=== PATIENT | female | born 1985 | race Caucasian/White ===

== ENCOUNTER 2018-01-23 02:15 | Outpatient (CLI) | payer MEDICAID, SELFPAY | END 2018-01-23 02:35 | PROVIDERS: PCP Nurse Practitioner Family; Visit Provider Nurse Practitioner Family | DX: R07.89 Other chest pain (principal) ==

== ENCOUNTER 2018-05-10 00:09 | Outpatient (CLI) | payer OTHER, SELFPAY ==
--- NOTE | 2018-05-10 13:00 | ETT_ITS ---
*[facility]* *[facility]* [address] [place] [address] Stress Electrocardiography Bret protocol Date of study: 05/10/2018 *PATIENT PRESENTATION* Height: 172.7cm (68in) Blood Pressure: Weight: 135kg (297lb) BSA: 2.62m^2 Referring physician: Nery Lomas Ordering physician: Nery Lomas Impressions: - Normal study after maximal exercise. - No arrhythmias. Summary: 1. Stress: The target heart rate was achieved. Indication: R07.89. History: REASON FOR VISIT: INTERMITTENT CHEST ACHES ASSOCIATED WITH HEART RACING AND A HOT SUFFOCATING FEELING. THESE EPISODES WILL LAST UP TO 30 MINUTES AT TIMES. LAST EPISODE WAS APPROXIMATELY 1 MONTH AGO. 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 PMH: Asthma. Risk factors: Obesity. HDL: 35mg/dl. LDL: 89mg/dl. ALLERGIES: NO KNOWN ALLERGIES. MEDICATONS: LEVOTHYROXINE 25 MCG DAILY. LORATADINE 10 MG DAILY. IBUPROFEN 600 MG Q 6 HOURS PRN. ADVAIR 2 PUFFS BID. FLONASE 1-2 SPRAYS DAILY. ALBUTEROL SULFATE 2 PUFFS Q 4 HRS PRN. Protocol: Bret protocol. Baseline ECG: SINUS RHYTHM. HR 74 BPM. Stress protocol: + +---+ + !Stage !HR !BP (mmHg) ! + +---+ + !Baseline supine !74 !102/62 (75) ! + +---+ + !Baseline standing !78 !112/70 (84) ! + +---+ + !Stage I; 1.7mph, 10degrees; 3 min !133!122/84 (97) ! + +---+ + !Stage II; 2.5mph, 12degrees; 3 min!156!162/88 (113)! + +---+ + !Peak stress !171! ! + +---+ + !Immediate post stress !---!162/72 (102)! + +---+ + !Recovery; 3 min !104!136/68 (91) ! + +---+ + !Recovery; 6 min !97 !106/60 (75) ! + +---+ + * Stress results: Maximal heart rate during stress was 171bpm (91% of maximal predicted heart rate). The maximal predicted heart rate was 187bpm. The target heart rate was achieved. The rate-pressure product for the peak heart rate and blood pressure was 79859cp Hg/min. Stress ECG: TREADMILL PORTION OF STRESS TEST ENDED IN 7 MINUTES & 37 SECONDS DUE TO SHORTNESS OF BREATH AND FATIGUE. NORMAL HEART RATE AND BLOOD PRESSURE RESPONSE TO EXERCISE MAX HR = 171 % OF TARGET = 91 NO ECTOPY APPROXIMATE METS ACHIEVED = 9.54 HEART RACING REPORTED AT IMMEDIATE RECOVERY TIME. SUBSIDED WITHIN 2 MINUTES OF REST. NO ANGINA. NO SIGNIFICANT ST SEGMENT CHANGES AVERAGE FUNCTIONAL CAPACITY FOR EXERCISE. Study data: Kwabena Valdez MD supervised and was readily available during the procedure. This study was interpreted by [facility]. Study status: Routine. Consent: The risks, benefits, and alternatives to the procedure were explained to the patient and informed consent was obtained. Procedure: Initial setup. A baseline ECG was recorded. Surface ECG leads and manual cuff blood pressure measurements were monitored. Heart sounds: Normal. Lung sounds: Normal. Treadmill exercise testing was performed using the Rbet protocol. Study completion: The patient tolerated the procedure well and was discharged from the lab. Discharge: The patient left the laboratory in stable condition. Birthdate: Patient birthdate: 1985. Sex: Gender: female. Study date: Study date: 05/10/2018. Study time: 01:00 PM. Signature Documentation: The Stress ECG portion of this study was interpreted by Kwabena Valdez MD. Electronically signed by Kwabena Valdez 05/10/2018 14:27
== END 2018-05-10 00:29 ==
PROVIDERS: PCP Nurse Practitioner Family; Visit Provider Nurse Practitioner Family
DX: R07.89 Other chest pain (principal); J45.909 Unspecified asthma, uncomplicated; E66.9 Obesity, unspecified
CPT/HCPCS: 93017

== ENCOUNTER 2018-10-14 11:12 | Outpatient (CLI) | payer OTHER, SELFPAY ==
[2018-10-14 12:14] LABS: HCT 39.9 % (36.0-46.0); HGB 13.8 g/dL (12.0-15.5); Mean Corp. HGB Concentration 34.6 g/dL (32.0-36.0); Mean Corpuscular Hemoglobin 30.4 pg (27.0-33.0); Mean Corpuscular Volume 87.9 fL (80-95); Mean Platelet Volume 11.5 fL (8.0-11.0); Platelet Count 182 x1000/uL (130-400); RBC 4.54 m/cumm (4.00-5.20); RBC Distribution Width 13.1 % (11.7-14.6); White Blood Cell Count 8.58 k/cumm (4.4-10.8)
[2018-10-14 12:53] LABS: Anion Gap 12.8 mmol/L (3-11); BUN 14 mg/dL (7-18); CO2 24.2 mmol/L (21.0-32.0); CREATININE 0.76 mg/dL (0.55-1.02); Calcium 9.1 mg/dL (8.5-10.1); Chloride 104 mmol/L (98-107); Glucose 78 mg/dL (70-100); Potassium 4.3 mmol/L (3.5-5.1); Sodium 141 mmol/L (136-145)
[2018-10-14 13:30] LABS: TSH (W/Ref FT4) 3.87 uIU/mL (0.358-3.74)
[2018-10-14 13:47] LABS: FREE T4 0.95 ng/dL (0.76-1.46)
== END 2018-10-14 11:32 ==
PROVIDERS: PCP Nurse Practitioner Family; Visit Provider Nurse Practitioner Family
DX: E03.9 Hypothyroidism, unspecified (principal); R00.2 Palpitations; R53.83 Other fatigue
CPT/HCPCS: 36415; 80048; 85027; 84439; 84443

== ENCOUNTER 2018-11-28 17:24 | Outpatient (REF) | payer OTHER, SELFPAY ==
--- NOTE | 2018-11-28 16:45 | PAPFT_PTH ---
PATIENT: Isabela Pool LOC: [facility] U#:[id number] AGE/SX: 33/F ROOM: RE11/28/[address]: Jersey Watson : 1985 BED: DIS: 11/28/2018 SPEC #: [id number] RECD: 11/28/18 17:58 STATUS: FADUMO REQ #: [id number] SILVIANO: 11/28/18 16:[address]: Jersey Watson DEPT: [facility] Cytology RECD BY: Cherie Holden ENTERED: 11/28/18 17:59 SP TYPE: PAPFT OTHR DR: Nery Lomas Tissues: 1 - CX/ENDOCX FOR PAP SMEARS Procedures: PAP THIN PREP/UVM Screening HPV DNA PROBE Comments: [id number]
== END 2018-11-28 17:44 ==
LOC: NCHCN 17:24
PROVIDERS: PCP Nurse Practitioner Family; Visit Provider Nurse Practitioner Family
DX: Z00.00 Encounter for general adult medical examination without abnormal findings (principal); Z12.4 Encounter for screening for malignant neoplasm of cervix; Z11.51 Encounter for screening for human papillomavirus (HPV)
CPT/HCPCS: 88142; 87624

== ENCOUNTER 2019-06-16 09:59 | Outpatient (REF) | payer OTHER, SELFPAY ==
[2019-06-16 14:32] LABS: TSH (W/Ref FT4) 4.52 uIU/mL (0.36-3.74)
[2019-06-16 14:52] LABS: FREE T4 0.89 ng/dL (0.76-1.46)
== END 2019-06-16 10:19 ==
LOC: NCHCN 09:59
PROVIDERS: PCP Nurse Practitioner Family; Visit Provider Nurse Practitioner Family
DX: E03.9 Hypothyroidism, unspecified (principal)
CPT/HCPCS: 84439; 84443

== ENCOUNTER 2019-08-22 19:48 | Emergency (ER) | payer OTHER, SELFPAY ==
[2019-08-22 19:52] VITALS: BP 120/99; PULSE 94; RESP 18; TEMP 36.7; O2SAT 99
--- NOTE | 2019-08-22 20:22 | W.ED.GENAD ---
Discharge Plan Disposition Patient Disposition: HOME Condition: Stable Discharge Details Chief Complaint: Orthopedic Clinical Impression: Strain of left calf muscle Primary Care Provider: Jersey Watson ED Provider: Verna Awad Home Meds and New Rx's Prescriptions: Continued loratadine 10 MG tablet 10 mg PO DAILY Qty: 30 RF: 1 fluticasone propionate [Flonase Allergy Relief] 9.9 ML spray,suspension 1 - 2 spry NS DAILY Qty: 1 RF: 3 albuterol sulfate [ProAir HFA] 8.5 GM HFA aerosol inhaler 2 puff Inhalation Q4H PRN Qty: 1 RF: 5 Advair HFA 8 GM HFA aerosol inhaler 2 puff Inhalation BID Qty: 3 RF: 3 levothyroxine 50 mcg tablet 50 mcg PO DAILY RF: 0 sertraline 50 mg tablet 50 mg PO DAILY RF: 0 Discharge Instructions Instructions: Muscle Strain (ED) Additional Instructions: Follow up with primary care provider in 3-5 days. Return to ED sooner if any worsening or concerns. Increase oral fluids. Please take Tylenol or Ibuprofen with food every 4-6 hours as needed for pain and swelling. Use Guille bandage or other elastic wrap as needed. Return if any worsening swelling, redness or concerns. Referrals: Jersey Watson, STATION INSTALLER [Primary Care Provider] - Discharge Data Discharge Date/Time-TO BE ENTERED AT DEPARTURE: 08/22/19 21:20 Medical Decision Making <Verna Awad - Last Filed: 08/22/19 21:17> 34-year-old female presents with left posterior lateral calf tenderness for the last 1 to 2 weeks. Patient states that pain is become more constant. She denies any known injuries, no fever no chills. 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 She is concerned for a DVT due to her father having history of DVT which is a risk factor. She is not on any control no smoking. She does have a history of asthma, hypothyroidism and seasonal allergies. On initial exam there is no significant obvious swelling or erythema noted there is mild warmth. Negative Homans sign no posterior popliteal tenderness. Ultrasound not available at this time. Will rule out DVT with d-dimer blood draw. Differential diagnosis includes DVT, tendinopathy, superficial thrombophlebitis, cellulitis, musculoskeletal strain. D-dimer within normal limits, discussed home care with patient and strict return instructions to return if any worsening, swelling or any concerns. <Pernell Chamorro DO - Last Filed: 08/23/19 23:10> Physician note: Patient was seen and assessed by myself in conjunction with Verna. Please refer to her history, physical, assessment and plan. 34-year-old female presents for greater than 3 to 5 days of left lower calf pain. Pain is mild and achy, worse with movement. No history of blood clots personally, no estrogen use, lung surgeries procedures or trips. Symptoms began gradually, and were not associated with vigorous exercise or trauma. Symptoms improved by rest, worsened with movement. Family history is positive for blood clots in her father, but no other family members. Physical exam demonstrates no erythema, edema, swelling, pitting edema, or change or abnormality in neurovascular exam. She does have very minimal subjective left calf tenderness on palpation. Resistance against eversion of the ankle worsens the left calf pain, no significant pain with plantar dorsiflexion or inversion of the ankle. Signs and symptoms appear clinically consistent with soleus strain. However with the patient's history differential does include superficial phlebitis, and notably less likely DVT. No ultrasound is currently available. Out of an abundance of precaution a d-dimer will be ordered for rule out as the patient is low risk, and is PERC negative and low risk on the Wells score. D-dimer negative. Symptoms inconsistent with blood clot at this time clinically. Symptoms are clinically consistent with muscle strain. Patient will be discharged home. Please refer to Verna's documentation for plan. HPI <Verna Awad - Last Filed: 08/22/19 21:17> General Mode of arrival: ambulatory. Date/Time Provider Initiated Documentation: 08/22/19 19:49. Limitations to Documentation: no limitations. Information obtained by: patient. HPI Narrative: 34-year-old female presents with left posterior lateral calf tenderness for the last 1 to 2 weeks. Patient states that pain is become more constant. She denies any known injuries, no fever no chills. 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 She is concerned for a DVT due to her father having history of DVT which is a risk factor. She is not on any control no smoking. She does have a history of asthma, hypothyroidism and seasonal allergies. On initial exam there is no significant obvious swelling or erythema noted there is mild warmth. Negative Homans sign no posterior popliteal tenderness. Related Data Home Medications Medication Instructions Recorded Confirmed fluticasone propionate [Flonase 1 - 2 spry NS DAILY #1 bottle 10/30/14 08/22/19 Allergy Relief] loratadine 10 mg PO DAILY #30 tab 10/30/14 08/22/19 Advair HFA 2 puff INHALATION BID #3 inhaler 11/29/16 08/22/19 albuterol sulfate [ProAir HFA] 2 puff INHALATION Q4H PRN #1 11/29/16 08/22/19 inhaler levothyroxine 50 mcg PO DAILY 08/22/19 08/22/19 sertraline 50 mg PO DAILY 08/22/19 08/22/19 Allergies Allergy/AdvReac Type Severity Reaction Status Date / Time No Known Allergies Allergy Unverified 08/22/19 20:03 General Stated Complaint: Vascular LEODAN: 3 Review of Systems <Verna Awad - Last Filed: 08/22/19 21:17> Narrative: Constitutional: Negative for weight loss, alert and oriented, well groomed, obese body habitus, appears comfortable. HEENT: Denies trauma, headaches, blurry vision, nasal discharge, sore throat, trouble swallowing. Chest: Denies chest pain, palpitations, irregular rhythm, hypertension. Respiratory: Denies Shortness of breath, cough, hemoptysis. GI: Denies abdominal pain, nausea, vomiting, diarrhea, constipation. : Denies dysuria, hematuria, flank pain, rectal bleeding. Musculoskeletal: Describes left calf pain x2 weeks. Father is a history of DVTs. Neuro: Denies dizziness, blurry vision, weakness, syncope, headache or facial numbness. Hematologic: Denies easy bruising, intolerance to heat or cold, hair loss. [facility] <Verna Awad - Last Filed: 08/22/19 21:17> Medical History Allergic rhinitis Asthma Surgical History section x2 Cholecystectomy (07/04/14) at [facility] Social History Smoking/Tobacco Use Status: Never Drug use: Never Do you feel safe at home: Yes Do you feel safe in your relationship?: Yes Exam <Verna Awad - Last Filed: 08/22/19 21:17> Narrative Exam Narrative: Constitutional: Alert and oriented x3. Appears stated age. Obese l body habitus. Head: Normocephalic, no trauma. Eyes: Pupils PERRLA, Red reflex noted, EOM's intact. Eyelids symmetrical without lesions, discharge, or swelling. ENT: Bilateral TM's WNL, External ear normal to inspection, no mastoid TTP, swelling, or erythema, Nasal turbinates WNL, no nasal discharge. Normal dentition, Posterior pharynx WNL, no exudate. Chest: RRR, Normal S1, S2, distal pulses intact. Resp: Lungs clear to auscultation bilaterally, no wheezes, rales, or rhonchi. Musculoskeletal: Normal gait, 5/5 strength to all four extremities. Negative Homans sign, no significant swelling to the left calf. There is slight warmth noted to the posterior calf. No popliteal tenderness. Skin: No suspicious rashes or lesions. Capillary refill less than 2 sec. Neurologic: Cranial nerves II-XII intact. Alert and oriented x 3. DTR's intact. Hematologic/Lymphatic: No ecchymosis, no lymphadenopathy. Course <Verna Awad - Last Filed: 08/22/19 21:17> Vital Signs Vital signs: Vital Signs Temperature 36.7 C 08/22/19 19:52 Pulse 94 H 08/22/19 19:52 Respiratory Rate 18 08/22/19 19:52 Blood Pressure 120/99 H 08/22/19 19:52 Pulse Oximetry 99 08/22/19 19:52 Temperature 36.7 C 08/22/19 19:52 Temperature Source Skin 08/22/19 19:52 Pulse 94 H 08/22/19 19:52 Respiratory Rate 18 08/22/19 19:52 Respiratory Effort 08/22/19 19:57 Blood Pressure 120/99 H 08/22/19 19:52 Blood Pressure Position Sitting 08/22/19 19:52 Pulse Oximetry 99 08/22/19 19:52 Oxygen Delivery Method Room Air 08/22/19 19:52 Oxygen Flow Rate 0 08/22/19 19:52 Pain Level 4 08/22/19 20:01
[2019-08-22 21:07] LABS: D-Dimer 409 ng/mlFEU (<500)
[2019-08-22 21:13] VITALS: BP 120/99; PULSE 94; RESP 18; TEMP 36.7; O2SAT 99
== END 2019-08-22 21:20 | disposition home or self-care (01) ==
PROVIDERS: Emergency Provider Registered Nurse Emergency; PCP Nurse Practitioner Family
DX: S86.812A Strain of other muscle(s) and tendon(s) at lower leg level, left leg, initial encounter (principal); X58.XXXA Exposure to other specified factors, initial encounter
CPT/HCPCS: 36415; 99282; 85379

== ENCOUNTER 2019-09-11 13:33 | Outpatient (REF) | payer OTHER, SELFPAY ==
[2019-09-11 15:23] LABS: HCT 41.2 % (36.0-46.0); Mean Corpuscular Hemoglobin 29.8 pg (27.0-33.0); Mean Corpuscular Volume 87.7 fL (80-95); Mean Platelet Volume 11.5 fL (8.0-11.0); Platelet Count 218 x1000/uL (130-400); RBC Distribution Width 13.3 % (11.7-14.6); White Blood Cell Count 6.71 k/cumm (4.4-10.8)
[2019-09-11 16:20] LABS: ALT 32 U/L (14-59); AST 20 U/L (15-37); Albumin 3.8 g/dL (3.4-5.0); Alkaline Phosphatase 84 U/L (46-116); Anion Gap 6.6 mmol/L (3-11); BUN 12 mg/dL (7-18); Bilirubin, Total 0.4 mg/dL (0.2-1.0); CO2 26.4 mmol/L (21.0-32.0); CREATININE 0.92 mg/dL (0.55-1.02); Calcium 8.6 mg/dL (8.5-10.1); Calculated LDL 88 mg/dL (<100); Chloride 105 mmol/L (98-107); Cholesterol 154 mg/dL (<200); Glucose 102 mg/dL (74-106); HDL Cholesterol 37 mg/dL (40-60); Potassium 3.7 mmol/L (3.5-5.1); Sodium 138 mmol/L (136-145); TSH (W/Ref FT4) 3.28 uIU/mL (0.36-3.74); Total Protein 7.1 g/dL (6.4-8.2); Triglyceride 148 mg/dL (<150)
== END 2019-09-11 13:53 ==
LOC: NCHCN 13:33
PROVIDERS: PCP Nurse Practitioner Family; Visit Provider Nurse Practitioner Family
DX: Z68.43 Body mass index [BMI] 50.0-59.9, adult (principal)
CPT/HCPCS: 80053; 80061; 85027; 84443

== ENCOUNTER 2019-10-31 09:17 | Outpatient (CLI) | payer OTHER, SELFPAY ==
[2019-11-06 22:36] LABS: SARS-CoV-2 RNA Undetected (Undetected); SARS-CoV-2 Specimen Source Nasopharynx
== END 2019-10-31 09:37 ==
PROVIDERS: PCP Nurse Practitioner Family; Visit Provider Nurse Practitioner Family
DX: Z11.59 Encounter for screening for other viral diseases (principal)
CPT/HCPCS: U0003

== ENCOUNTER 2019-12-10 11:45 | Emergency (ER) | payer SELFPAY ==
[2019-12-10 11:45] VITALS: BP 133/72; PULSE 92; RESP 18; TEMP 37.2; O2SAT 96
--- NOTE | 2019-12-10 11:45 | DI.CT_ITS ---
EXAM: CT HEAD CERVICAL SPINE WO COMPARISON: No exams were available for comparison FINDINGS: CT examination of the cervical spine was performed without contrast administration. There is no evide nce of acute cervical spine fracture or dislocation. Tracheolaryngeal structures appear intact. No ce rvical mass or adenopathy. Intervertebral disc spaces are well maintained. Noncontrast cranial CT was performed. Ventricular system is normal in appearance. No evidence of acut e intracranial hemorrhage, mass effect, or midline shift. No calvarial fracture. The orbital and temp oral bone structures appear intact. IMPRESSION: No evidence of acute cervical spine injury. No evidence of acute intracranial injury. RADIATION DOSE DELIVERED: 1,596.4mGy.cm Total DLP 1,596.4mGy.cm Total DLP DATA REPOSITORY: All CT scans at this facility are submitted to the National Radiology Data Registry (NRDR) Dose Index Registry (DIR) with the [employer] (ACR). RADIATION OPTIMIZATION: All CT scans at this facility use at least one of these dose optimization te chniques: automated exposure control; mA and/or kV adjustment per patient size (includes targeted exa ms where dose is matched to clinical indication); or iterative reconstruction.
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
[2019-12-10 11:57] VITALS: BP 133/72; PULSE 96; O2SAT 97
[2019-12-10] MEDS: Ketorolac 15 MG/ML VIAL IVP (12:18)
[2019-12-10] MEDS: Normal Saline 1,000 ML 150 ML IV (12:18)
[2019-12-10 12:53] LABS: Abs Immature Grans 0.03 10^3/uL (0.0-0.06); Absolute Basophil Count 0.03 10^3/uL (0.0-0.2); Absolute Eosinophil Count 0.07 10^3/uL (0.0-0.7); Absolute Lymphocyte Count 1.98 10^3/uL (1.2-3.4); Absolute Monocyte Count 0.57 10^3/uL (0.1-0.8); Absolute Neutrophil Count 6.81 10^3/uL (1.2-6.7); Basophils % 0.3; Eosinophils % 0.7; HCT 41.8 % (36.0-46.0); HGB 14.3 g/dL (11.2-15.7); Immature Grans % 0.3; Lymphocytes % 20.9; MCH 29.5 pg (27.0-33.0); MCHC 34.2 % (32.0-36.0); MCV 86.4 fL (80-95); MPV 11.5 fL (8.0-11.0); Neutrophils % 71.8; Nucleated RBC 0 %; Platelet Count 204 10^3/uL (130-400); RBC 4.84 10^6/uL (3.93-5.22); RDW 12.6 % (11.7-14.6); RDW-SD 39.6 fL; WBC 9.49 10^3/uL (4.4-10.8)
[2019-12-10] MEDS: Omnipaque 350 MG/ML 100 ML BTL IJ (12:59)
[2019-12-10 13:04] LABS: ALT 26 U/L (14-59); AST 19 U/L (15-37); Albumin 3.9 g/dL (3.4-5.0); Alkaline Phosphatase 63 U/L (46-116); Anion Gap 12.3 mmol/L (3-11); BUN 14 mg/dL (7-18); Bilirubin, Total 0.4 mg/dL (0.2-1.0); CO2 24.7 mmol/L (21.0-32.0); CREATININE 0.93 mg/dL (0.55-1.02); Calcium 9.2 mg/dL (8.5-10.1); Chloride 103 mmol/L (98-107); Glucose 94 mg/dL (74-106); Potassium 3.8 mmol/L (3.5-5.1); Sodium 140 mmol/L (136-145); Total Protein 7.5 g/dL (6.4-8.2)
--- NOTE | 2019-12-10 13:15 | DI.CT_ITS ---
EXAM: CT CHEST/ABD/PEL W TECHNIQUE: CT examination of the chest, abdomen, and pelvis was performed with bolus infusion of 100 cc of Omnipaque 350. COMPARISON: CT CHEST FOR PULMONARY EMBOLUS from 05/23/2017 FINDINGS: There is no evidence of a thoracic vascular injury. The lungs are clear. No pneumothorax or pleural effusion. No mediastinal hematoma. No adenopathy in the chest. Tracheobronchial tree appears intact. The liver, spleen, and pancreas appear normal. Gallbladder has been surgically removed. Bile ducts are normal. Adrenals and kidneys are unremarkable. No evidence of urinary tract injury or obstruction. No abdominal or pelvic vascular injury seen. No abdominal or pelvic adenopathy. No significant abdomi nal wall hematoma seen. Small ventral fat containing hernia noted.. No evidence of bowel injury. [employer] structures appear intact. IMPRESSION: No evidence of acute injury of the chest, abdomen, or pelvis. RADIATION DOSE DELIVERED: 2,395.8mGy.cm Total DLP 2,395.8mGy.cm Total DLP DATA REPOSITORY: All CT scans at this facility are submitted to the National Radiology Data Registry (NRDR) Dose Index Registry (DIR) with the [employer] (ACR). RADIATION OPTIMIZATION: All CT scans at this facility use at least one of these dose optimization te chniques: automated exposure control; mA and/or kV adjustment per patient size (includes targeted exa ms where dose is matched to clinical indication); or iterative reconstruction.
[2019-12-10 13:43] VITALS: O2SAT 97
[2019-12-10 13:44] VITALS: BP 129/78; PULSE 81; O2SAT 96
== END 2019-12-10 14:28 | disposition home or self-care (01) ==
LOC: ER 14:27
PROVIDERS: Emergency Provider Emergency Medicine; PCP Nurse Practitioner Family
DX: S40.012A Contusion of left shoulder, initial encounter (principal); S50.312A Abrasion of left elbow, initial encounter; V28.4XXA Motorcycle driver injured in noncollision transport accident in traffic accident, initial encounter
CPT/HCPCS: 36415; 74177; 80053; 96374; 99285; 70450; 71260; 72125; 73030; 85025; J1885; J3490; L3650

== ENCOUNTER 2020-05-16 13:20 | Emergency (ER) | payer OTHER, SELFPAY ==
[2020-05-16 13:23] VITALS: BP 174/106; PULSE 107; RESP 20; TEMP 36.6; O2SAT 98
--- NOTE | 2020-05-16 13:47 | W.ED.GENAD ---
Discharge Plan Disposition Patient Disposition: HOME Condition: Stable Discharge Details Clinical Impression: Head injury, Laceration of face Primary Care Provider: Jersey Watson ED Provider: Verna Awad Home Meds and New Rx's Prescriptions: No Action albuterol sulfate [ProAir HFA] 8.5 GM HFA aerosol inhaler 2 puff Inhalation Q4H PRN Qty: 1 RF: 5 Advair HFA 8 GM HFA aerosol inhaler 2 puff Inhalation BID Qty: 3 RF: 3 levothyroxine 50 mcg tablet 50 mcg PO DAILY RF: 0 loratadine [Claritin] 10 mg Tablet 10 mg PO DAILY RF: 0 Discharge Instructions Instructions: Head Injury (ED), Facial Laceration (ED) Additional Instructions: Have sutures removed in 5 to 7 days, keep wound clean and dry, leave alone for 12 to 24 hours you may wash under running soap and water tomorrow. Return for any signs of infection including increased redness, swelling red streaks or drainage. Return for any worsening signs of head injury including worsening headache not relieved by Tylenol or ibuprofen, vomiting or confusion. Follow up with primary care provider in 3-5 days. Return to ED sooner if any worsening or concerns. Increase oral fluids. Please take Tylenol or Ibuprofen with food every 4-6 hours as needed for pain and swelling. Referrals: Jersey Watson, [employer]GER [Primary Care Provider] - Medical Decision Making 34-year-old female presents to the ED chief complaint of head injury and laceration. This occurred while sledding approximately 45 minutes prior to arrival. Patient went downhill sliding unknown of speed fell into a ravine hitting her head in a ditch. She denies any loss of consciousness, denies any neck pain no vomiting. She denies any blurry vision or dizziness. She does have approximately 1.5 cm laceration noted to her left eyebrow. Also noted is an abrasion noted to her left cheek associate with some swelling. EOMs are intact. She did not take any medications prior to arrival. She has a past medical history of hypothyroidism, asthma. She is somewhat anxious. At this time will do head CT without contrast, to rule out underlying bone fracture or intracranial pathology. Patient appears very anxious and is concerned for concussion, I do however have a low suspicion for any internal injury. We will give tetanus shot, Tylenol and plan to repair the laceration. COMPARISON: CT HEAD CERVICAL SPINE WO 12/10/2019 1:01 PM FINDINGS: Brain: Normal. No hemorrhage. Unremarkable white matter. No mass effect. Cerebral ventricles: No ventriculomegaly. Bones/joints: Unremarkable. No acute fracture. Paranasal sinuses: Visualized sinuses are unremarkable. No fluid levels. Mastoid air cells: Visualized mastoid air cells are well aerated. Soft tissues: Unremarkable. IMPRESSION: No acute intracranial abnormality. Lacerations repaired as noted in procedure note above. Wound was cleaned with chlorhexidine scrub, infiltrated with 1% lidocaine with epi, patient tolerated well. 3 simple interrupted sutures with 5-0 Ethilon placed to the laceration near her eyebrow, one simple interrupted suture placed to the stellate laceration to the corner of her eyelid. Wound was well approximated. Home care was discussed and suture removal, patient verbalized understanding. Discussed strict return instructions. HPI General Mode of arrival: ambulatory. Date/Time Provider Initiated Documentation: 05/16/20 13:29. Limitations to Documentation: no limitations. Information obtained by: patient. HPI Narrative: 34-year-old female presents to the ED chief complaint of head injury and laceration. This occurred while sledding approximately 45 minutes prior to arrival. Patient went downhill sliding unknown of speed fell into a ravine hitting her head in a ditch. She denies any loss of consciousness, denies any neck pain no vomiting. She denies any blurry vision or dizziness. She does have approximately 1.5 cm laceration noted to her left eyebrow. Also noted is an abrasion noted to her left cheek associate with some swelling. EOMs are intact. She did not take any medications prior to arrival. She has a past medical history of hypothyroidism, asthma. She is somewhat anxious. Related Data Home Medications Medication Instructions Recorded Confirmed Advair HFA 2 puff INHALATION BID #3 inhaler 11/29/16 05/16/20 albuterol sulfate [ProAir HFA] 2 puff INHALATION Q4H PRN #1 11/29/16 05/16/20 inhaler levothyroxine 50 mcg PO DAILY 08/22/19 05/16/20 loratadine [Claritin] 10 mg PO DAILY 12/10/19 05/16/20 Allergies Allergy/AdvReac Type Severity Reaction Status Date / Time No Known Allergies Allergy Unverified 05/16/20 13:28 General Stated Complaint: Laceration LEODAN: 3 Review of Systems All systems reviewed & are unremarkable except as noted in HPI and below Constitutional Constitutional: Reports as per HPI Eyes Eyes: Reports as per HPI Integumentary/Breasts Skin/Breast: Reports wounds (Laceration noted to the left eyebrow) [facility] Medical History (Updated 05/16/20 @ 15:45 by Verna Awad) Allergic rhinitis Asthma Surgical History section x2 Cholecystectomy (07/04/14) at [facility] Social History Smoking/Tobacco Use Status: Never Smoking risk assessment performed?: Yes Alcohol Intake: current Alcohol Intake frequency: holidays/special occasions only Drug use: Never Substance use type: does not use Do you feel safe at home: Yes Do you feel safe in your relationship?: Yes Exam Narrative Exam Narrative: Constitutional: Alert and oriented x3. Appears stated age. Normal body habitus. Head: Normocephalic, does have approximately 1.5 to 2 cm laceration noted to the left eyebrow, has a superficial abrasion noted to left cheek associated with some swelling. Underlying bone structure is intact with palpation. Eyes: Pupils PERRLA, Red reflex noted, EOM's intact. Eyelids symmetrical , laceration noted left upper eyebrow area, some swelling noted. ENT: Bilateral TM's WNL, External ear normal to inspection, no mastoid TTP, swelling, or erythema, no hemotympanum, nasal turbinates WNL, no septal hematoma, no nasal discharge. Normal dentition, Posterior pharynx WNL, no exudate. Chest: RRR, Normal S1, S2, distal pulses intact. Resp: Lungs clear to auscultation bilaterally, no wheezes, rales, or rhonchi. Musculoskeletal: Normal gait, 5/5 strength to all four extremities. Does complain of mild left shoulder tenderness able to raise shoulder to approximately 75 degrees. Does have a history of rotator cuff repair, no obvious deformity or tenderness with palpation. Skin: Capillary refill less than 2 sec. Neurologic: Cranial nerves II-XII intact. Alert and oriented x 3. DTR's intact. Hematologic/Lymphatic: No ecchymosis, no lymphadenopathy. HENMT Head: laceration and periorbital ecchymosis (Mild left eye) Head images: 1. Approximately 1.5 cm linear laceration 2. Small stellate laceration noted Course Vital Signs Vital signs: Vital Signs Temperature 36.6 C 05/16/20 13:23 Pulse 107 H 05/16/20 13:23 Respiratory Rate 20 05/16/20 13:23 Blood Pressure 174/106 H 05/16/20 13:23 Pulse Oximetry 98 05/16/20 13:23 Temperature 36.6 C 05/16/20 13:23 Temperature Source Skin 05/16/20 13:23 Pulse 107 H 05/16/20 13:23 Respiratory Rate 20 05/16/20 13:23 Blood Pressure 174/106 H 05/16/20 13:23 Blood Pressure Position Sitting 05/16/20 13:23 Pulse Oximetry 98 05/16/20 13:23 Oxygen Delivery Method Room Air 05/16/20 13:23 Oxygen Flow Rate 0 05/16/20 13:23 Pain Level 5 05/16/20 13:23 Procedures Laceration Laceration 1: Site: face Side (If applicable): left Size (cm): 1.5 Description: linear Depth: simple, single layer Local Anesthetic: Lidocaine 1% and with Epi Amount of anesthesia used (mL): 1 Pre-repair: wound explored, irrigated extensively and deep structures intact Skin layer closed with: nylon Size (cm): 5-0 Number of sutures: 3 Technique: simple, interrupted Laceration 2: Site: face Side (If applicable): left Size (cm): 0.5 Description: stellate Depth: simple, single layer Local Anesthetic: Lidocaine 1% and with Epi Amount of anesthesia used (mL): 0.5 Pre-repair: irrigated extensively Skin layer closed with: nylon Size (cm): 5-0 Number of sutures: 1 Technique: simple, interrupted
[2020-05-16] MEDS: Acetaminophen 500 MG TAB PO (14:17)
[2020-05-16] MEDS: Lidocaine/Epinephri/Tetracaine Topical Gel 3 ML TP (14:17)
[2020-05-16 14:22] VITALS: BP 116/94; PULSE 90; RESP 18; TEMP 36.7; O2SAT 97
--- NOTE | 2020-05-16 14:55 | DI.CT_ITS ---
EXAM: CT HEAD WO CLINICAL HISTORY: Head Injury, eye lid laceration. TECHNIQUE: Imaging Protocol: Axial computed tomography images with coronal and sagittal reformatted images were created and reviewed COMPARISON: No exams were available for comparison FINDINGS: Ventricles and Extra axial spaces: Normal in size and morphology for the patient's age. Hemorrhage: None. Cerebral parenchyma: Normal. Midline shift: None. Brainstem/Cerebellum: Normal. Calvarium: Normal. Visualized Paranasal sinuses/Mastoids: Clear. Soft Tissues: Unremarkable. IMPRESSION: No acute intracranial process. RADIATION DOSE DELIVERED: 824.54mGy.cm Total DLP DATA REPOSITORY: All CT scans at this facility are submitted to the National Radiology Data Registry (NRDR) Dose Index Registry (DIR) with the [employer] (ACR). RADIATION OPTIMIZATION: All CT scans at this facility use at least one of these dose optimization te chniques: automated exposure control; mA and/or kV adjustment per patient size (includes targeted exa ms where dose is matched to clinical indication); or iterative reconstruction.
--- NOTE | 2020-05-16 15:05 | DI.VRAD_ITS ---
PROCEDURE INFORMATION: Exam: CT Head Without Contrast Exam date and time: 05/16/2020 1:47 PM Age: 34 years old Clinical indication: Injury or trauma; Fall; Concussion/head injury; Injury details: Fell skiing. No loc TECHNIQUE: Imaging protocol: Computed tomography of the head without contrast. Radiation optimization: All CT scans at this facility use at least one of these dose optimization techniques: automated exposure control; mA and/or kV adjustment per patient size (includes targeted exams where dose is matched to clinical indication); or iterative reconstruction. COMPARISON: CT HEAD CERVICAL SPINE WO 12/10/2019 1:01 PM FINDINGS: Brain: Normal. No hemorrhage. Unremarkable white matter. No mass effect. Cerebral ventricles: No ventriculomegaly. Bones/joints: Unremarkable. No acute fracture. Paranasal sinuses: Visualized sinuses are unremarkable. No fluid levels. Mastoid air cells: Visualized mastoid air cells are well aerated. Soft tissues: Unremarkable. IMPRESSION: No acute intracranial abnormality. Dictated and Authenticated by: Rachel Chapman MD. Ordering:NEGIN Gillespie MD
== END 2020-05-16 15:50 | disposition home or self-care (01) ==
PROVIDERS: Emergency Provider Registered Nurse Emergency; PCP Nurse Practitioner Family
DX: S01.112A Laceration without foreign body of left eyelid and periocular area, initial encounter (principal); V00.221A Fall from sled, initial encounter; Y93.23 Activity, snow (alpine) (downhill) skiing, snowboarding, sledding, tobogganing and snow tubing; S00.81XA Abrasion of other part of head, initial encounter
CPT/HCPCS: 12011; 81025; 90471; 99284; 70450

== ENCOUNTER 2020-07-05 15:20 | Outpatient (REF) | payer OTHER, SELFPAY | END 2020-07-05 15:21 | disposition home or self-care (01) | LOC: NCHCN 15:20 | PROVIDERS: PCP Nurse Practitioner Family; Visit Provider Acupuncturist | DX: J02.9 Acute pharyngitis, unspecified (principal) | CPT/HCPCS: 87070 ==

== ENCOUNTER 2020-09-17 04:04 | Outpatient (CLI) | payer OTHER, SELFPAY ==
--- NOTE | 2020-09-17 09:35 | DI.MRI_ITS ---
Exam(s) MR UPPER JOINT LT WO EXAM: MR UPPER JOINT LT WO CLINICAL HISTORY: LT SHOULDER PAIN, M25.512. TECHNIQUE: Multiplanar multisequence MRI was performed. COMPARISON: CR XR SHOULDER LT COMPLETE 2+V from 12/10/2019 FINDINGS: BONES: There is no fracture or contusion pattern. JOINTS: Mild degenerative changes are seen at the acromioclavicular joint. The glenohumeral joint is normal. The articular cartilage is well maintained. There also degenerative changes seen in the gr eater tuberosity. TENDONS: Supraspinatus: There is tendinosis of the supraspinatus tendon. No evidence of a full-thickness tear . Infraspinatus: Unremarkable. Subscapularis: There is tendinosis of the subscapularis tendon. Teres Minor: Unremarkable. Biceps and Manito: Unremarkable. MUSCLES: Unremarkable. GLENOID LABRUM: Unremarkable on this noncontrast examination. SOFT TISSUES: Unremarkable. LIGAMENTS: Unremarkable. OTHER: Subacromial and subdeltoid bursae are unremarkable. IMPRESSION: 1. Tendinosis of the subscapularis and supraspinatus tendons. 2. No evidence of a rotator cuff tear. 3. Degenerative changes of the acromioclavicular joint. DATA REPOSITORY:
== END 2020-09-17 04:24 ==
PROVIDERS: PCP Nurse Practitioner Family; Visit Provider Nurse Practitioner Family
DX: M25.512 Pain in left shoulder (principal); M75.82 Other shoulder lesions, left shoulder; M19.012 Primary osteoarthritis, left shoulder
CPT/HCPCS: 73221

== ENCOUNTER 2021-02-03 11:36 | Outpatient (REF) | payer OTHER, SELFPAY | END 2021-02-03 11:37 | disposition home or self-care (01) | LOC: LBN 11:36 | PROVIDERS: PCP Nurse Practitioner Family; Visit Provider Physician Assistant Medical | DX: J02.9 Acute pharyngitis, unspecified (principal) | CPT/HCPCS: 87070 ==

== ENCOUNTER 2021-02-07 13:06 | Outpatient (CLI) | payer OTHER, SELFPAY ==
[2021-02-07 13:04] LABS: Mono Screening Negative (Negative)
== END 2021-02-07 13:07 | disposition home or self-care (01) ==
LOC: LBO 13:06
PROVIDERS: PCP Nurse Practitioner Family; Visit Provider Physician Assistant Medical
DX: J02.9 Acute pharyngitis, unspecified (principal)
CPT/HCPCS: 36415; 86308

== ENCOUNTER 2021-02-23 10:46 | Outpatient (REF) | payer OTHER, SELFPAY ==
--- NOTE | 2021-02-23 08:15 | TONSIL_PTH ---
PATIENT: Isabela Pool LOC: [facility] U#:[id number] AGE/SX: 35/F ROOM: RE02/23/[address]: Mauricio Arita MD : 1985 BED: DIS: 02/23/2021 SPEC #: [id number] RECD: 02/23/21 12:58 STATUS: FADUMO REJolanta #: [id number] SILVIANO: 02/23/21 08:[address]: Mauricio Arita DEPT: Surgical Specimen RECD BY: Cherie Holden ENTERED: 02/23/21 12:58 SP TYPE: TONSIL OTHR DR: Jersey Watson Tissues: 1 - TONSIL BIOPSY Procedures: GROSS AND MICRO LEVEL 4 IMMUNOPEROXIDASE STAIN Single Probe In Situ Hybridization Comments: [id number] (FLOW CYTOMETRY, ORDERED IN LAB - [id number])
[2021-03-04 09:36] LABS: Leukemia/Lymphoma by FC (Blood See Comments
== END 2021-02-23 10:47 | disposition home or self-care (01) ==
LOC: LBN 10:46
PROVIDERS: PCP Nurse Practitioner Family; Visit Provider Otolaryngology
DX: J35.1 Hypertrophy of tonsils (principal); J03.90 Acute tonsillitis, unspecified; J35.8 Other chronic diseases of tonsils and adenoids
CPT/HCPCS: 88185; 88305; 88368; 88184; 88189; 88361

== ENCOUNTER 2021-03-02 13:22 | Outpatient (REF) | payer OTHER, SELFPAY ==
[2021-03-02 14:57] LABS: TSH 2.66 uIU/mL (0.36-3.74)
== END 2021-03-02 13:23 | disposition home or self-care (01) ==
LOC: NCHCN 13:22
PROVIDERS: PCP Nurse Practitioner Family; Visit Provider Physician Assistant
DX: E03.9 Hypothyroidism, unspecified (principal)
CPT/HCPCS: 84443

== ENCOUNTER 2021-03-04 11:37 | Outpatient (CLI) | payer OTHER, SELFPAY ==
--- NOTE | 2021-03-04 | DI.CT_ITS ---
Exam(s) CT NECK W EXAM: CT NECK W CLINICAL HISTORY: BILAT TONSILLAR HYPERTROPHY,? DEEP SPACE INFECTION OF SOFT TISSUES OF NECK. TECHNIQUE: Imaging Protocol: Axial computed tomography images with coronal and sagittal reformatted images were created and reviewed CONTRAST MATERIAL: Intravenous: Omnipaque 350 Contrast volume:100 ml Contrast route:IV - COMPARISON: CT CT HEAD CERVICAL SPINE WO from 12/10/2019 FINDINGS: Parotids/submandibular/thyroid gland: Normal. Lymphadenopathy: There is scattered lymph nodes seen along the level one to level three all measurin g less than 8 mm in short axis diameter which are physiologic in nature. Carotids/Jugular: Within normal limits. Soft tissues: There is bilateral tonsillar enlargement. There is no evidence of abscess or deep spa ce infection. The floor the mouth is unremarkable. The epiglottis and vocal cords are within normal limits. Images through both lung apices are unremarkable. Visualized portions of the brain are unre markable. Ethmoid sinus mucosal thickening. IMPRESSION: Bilateral tonsillar prominence without evidence abscess or deep space infection. RADIATION DOSE DELIVERED: 443.64mGy.cm Total DLP DATA REPOSITORY: All CT scans at this facility are submitted to the National Radiology Data Registry (NRDR) Dose Index Registry (DIR) with the [employer] (ACR). RADIATION OPTIMIZATION: All CT scans at this facility use at least one of these dose optimization te chniques: automated exposure control; mA and/or kV adjustment per patient size (includes targeted exa ms where dose is matched to clinical indication); or iterative reconstruction.
[2021-03-04] MEDS: Omnipaque 350 MG/ML 100 ML BTL IJ (13:56)
[2021-03-04] MEDS: Normal Saline - Diluent 50 ML VIAL IV (13:56)
[2021-03-04] MEDS: Normal Saline Flush 10 ML SYR IVP (13:57)
== END 2021-03-04 11:57 ==
PROVIDERS: PCP Nurse Practitioner Family; Visit Provider Physician Assistant Medical
DX: J35.1 Hypertrophy of tonsils (principal)
CPT/HCPCS: 70491; J3490

== ENCOUNTER 2021-03-04 15:42 | Outpatient (REF) | payer OTHER, SELFPAY ==
[2021-03-05 12:49] LABS: COVID-19 RT-PCR UVMMC Result Negative (Negative)
== END 2021-03-04 15:43 | disposition home or self-care (01) ==
LOC: LBN 15:42
PROVIDERS: PCP Nurse Practitioner Family; Visit Provider Physician Assistant Medical
DX: Z20.822 Contact with and (suspected) exposure to COVID-19 (principal); J06.9 Acute upper respiratory infection, unspecified
CPT/HCPCS: U0003

== ENCOUNTER 2021-03-16 20:19 | Outpatient (REF) | payer OTHER, SELFPAY ==
[2021-03-18 15:09] LABS: Chlamydia Result Negative (Negative); GC Result Negative (Negative)
== END 2021-03-16 20:20 | disposition home or self-care (01) ==
LOC: NCHCN 20:19
PROVIDERS: PCP Nurse Practitioner Family; Visit Provider Family Medicine
DX: Z11.3 Encounter for screening for infections with a predominantly sexual mode of transmission (principal)
CPT/HCPCS: 87491; 87591

== ENCOUNTER 2021-04-01 15:04 | Outpatient (REF) | payer OTHER, SELFPAY ==
[2021-04-02 17:19] LABS: COVID-19 RT-PCR UVMMC Result Negative (Negative)
== END 2021-04-01 15:05 | disposition home or self-care (01) ==
LOC: LBN 15:04
PROVIDERS: PCP Nurse Practitioner Family; Visit Provider Physician Assistant Medical
DX: J35.1 Hypertrophy of tonsils (principal); Z20.822 Contact with and (suspected) exposure to COVID-19
CPT/HCPCS: U0003; 87070

== ENCOUNTER 2021-04-29 03:39 | Outpatient (CLI) | payer OTHER, SELFPAY ==
[2021-04-29 10:20] LABS: Source Nasal/Nares
[2021-04-29 13:21] LABS: COVID-19 PCR Negative (Negative)
== END 2021-04-29 03:40 | disposition home or self-care (01) ==
PROVIDERS: PCP Nurse Practitioner Family; Visit Provider Otolaryngology
DX: Z20.822 Contact with and (suspected) exposure to COVID-19 (principal)
CPT/HCPCS: 87635

== ENCOUNTER 2021-05-02 07:28 | Day surgery (SDC) | payer OTHER, SELFPAY ==
--- NOTE | 2021-05-01 18:47 | ANES.PREOP_ITS ---
General Info Date of Service Date Performed: 05/02/21 Height: 5 ft 9 in Weight: 140.615 kg Body Mass Index (BMI): 45.8 Surgical Procedure: Operation Date: 05/02/21 08:40 Proposed Procedures Side Surgeon p Tonsillectomy Mauricio Arita MD Meds Allergies and Home Medications Allergies Allergy/AdvReac Type Severity Reaction Status Date / Time cat dander AdvReac Intermediate Verified 05/02/21 07:51 seasonal allergies Allergy Uncoded 04/28/21 15:30 Home Medication Medication Instructions Recorded Advair HFA 2 puff INHALATION BID #3 inhaler 11/29/16 albuterol sulfate [ProAir HFA] 2 puff INHALATION Q4H PRN #1 11/29/16 inhaler levothyroxine 50 mcg PO DAILY 08/22/19 loratadine [Claritin] 10 mg PO DAILY 12/10/19 fluticasone propionate 50 1 spray INTRANASAL DAILY 02/14/21 mcg/actuation nasal spray,suspension prednisone 50 mg tablet 50 mg PO DAILY 04/05/21 ipratropium 0.5 mg-albuterol 3 mg 3 ml INHALATION .Q4-6H PRN ml 04/27/21 (2.5 mg base)/3 mL nebulization soln omeprazole 20 mg PO DAILY 04/28/21 acetaminophen [Tylenol] 325 05/02/21 Current Visit Medications: Current Medications Generic Name Dose Route Start Last Admin Trade Name Freq PRN Reason Stop Dose Admin Dexamethasone 12 mg 05/02/21 06:00 Dexamethasone 10 Mg/Ml Vial IVP 05/02/21 23:59 PREOP CHELLE Ringer's Solution 1,000 mls @ 80 mls/hr 05/02/21 06:00 IV 05/29/21 23:59 INFUSION CHELLE Cefazolin Sodium/Dextrose 2 gm in 50 mls @ 100 mls/hr 05/02/21 06:00 Ancef Duplex IVPB 05/02/21 23:59 PREOP CHELLE Tranexamic Acid 1,400 mg/ 64 mls @ 384 mls/hr 05/02/21 06:00 Sodium Chloride IVPB 05/02/21 23:59 PREOP CHELLE IV Miscellaneous Supplies 1 each 05/02/21 06:00 Iv Access IV 05/29/21 23:59 DIRECTED CHELLE Sodium Chloride 0 ml 05/02/21 06:00 Normal Saline Flush 10 Ml Syr IV 05/29/21 23:59 PRN PRN Sodium Chloride 0 ml 05/02/21 06:00 Normal Saline 10 Ml Vial IJ 05/29/21 23:59 DIRECTED PRN Sterile Water 0 ml 05/02/21 06:00 Water,Injection,Sterile 10 Ml Vial IJ 05/29/21 23:59 DIRECTED PRN PFSH Active Problems Active Problems: Problem Status Onset Code RUQ pain 07/03/14 R10.11 Asthma J45.909 H/O surgical procedure Z98.89 Encounter for screening for other viral diseases Z11.59 Encounter for screening laboratory testing for COVID-19 virus Z20.822 Tonsil asymmetry J35.8 Tonsillitis J03.90 Tonsillar hypertrophy J35.1 Chronic tonsillitis J35.01 Hypothyroidism E03.9 Medical History Medical History Allergic rhinitis Asthma Surgical History Surgical History section x2 Cholecystectomy (07/04/14) at [facility] Hx of cholecystectomy Tobacco Smoking/Tobacco Use Status: Never Alcohol Alcohol Intake: current Alcohol intake frequency: holidays/special occasions only Substance Use Substance use: Never Substance use type: does not use Vital Signs and Lab Results Lab Results Blood Type / Crossmatch: No Data to Display Complete Blood Count: No Data to Display Complete Metabolic Panel: No Data to Display Liver Function Panel: No Data to Display Coagulation Panel: No Data to Display Cardiac Panel: No Data to Display Arterial Blood Gas: No Data to Display Venous Blood Gas: No Data to Display Pancreas Panel: No Data to Display Thyroid Panel: No Data to Display Infectious Disease: Coronavirus (COVID-19)(PCR) Negative (Negative) 04/29/21 08:26 04/29/21 Coronavirus 2019 Source Nasal/Nares 04/29/21 08:26 04/29/21 Blood Cultures: No Data to Display Toxicology Panel: No Data to Display Panel: No Data to Display Imaging and Studies Imaging and Studies Study information below may be from another EMR and interpreted by another provider. Please see original notes in EMR for more complete details. Stress Test Summary: 04/2018: normal study. Pulmonary Function Summary: 12/2013: mild obstructive airway dz with some bronchodilator response. mild hyperinflation. Anesthesia Assessment and Plan Anesthesia History Personal History: No History of Anesthesia Complications Family History: No Family History of Anesthesia Complications Exercise Tolerance Exercise Tolerance: Metabolic Equivalents<4 Cardiac & Pulmonary Exam Cardiac Exam: Normal S1/S2 Heart Sounds Pulmonary Exam: Clear Bilateral Breath Sounds Implantable Cardiac Device Does patient have a Pacemaker or an ICD?: No Airway Exam Known Difficult Airway: No Mallampati Class: 2 Mouth Opening: Normal (> 3cm) Thyromental Distance: Greater than 3 cm Neck Range of Motion: Full ROM Neck Circumference: Normal Teeth Condition: Normal Dentition ASA Classification ASA Score: ASA 3 Emergency Case?: No NPO Status NPO Status: NPO Clears >2 hours, Solids >8 hours Status Status: Negative HCG Anesthesia Plan Resuscitation Status: Full Code Anesthesia Technique: General Anesthesia Airway Planned: Endotracheal Tube Monitors Used: Standard Monitors Preoperative Comments:: 35 yo female for tonsillectomy. Sig PMHx: high BMI, hypothyroid (on replacement), asthma (2 inhalers, currently on 40 mg pred)
[2021-05-02] VITALS (10 sets, daily range): BP systolic 117–138; BP diastolic 63–85; PULSE 66–88; RESP 11–18; TEMP 36.1–36.5; O2SAT 96–99; BMI 45.8
[2021-05-02] MEDS: Lactated Ringers 1,000 ML 80 ML IV (08:25)
[2021-05-02] MEDS: ceFAZolin 2 GM/50 ML BAG IVPB (08:32)
--- NOTE | 2021-05-02 08:51 | TONSIL_PTH ---
PATIENT: Isabela Pool LOC: [facility] U#:[id number] AGE/SX: 35/F ROOM: RE05/02/[address]: Mauricio Arita MD : 1985 BED: DIS: 05/02/2021 SPEC #: [id number] RECD: 05/02/21 12:30 STATUS: FADUMO REQ #: [id number] SILVIANO: 05/02/21 08:[address]: Mauricio Arita DEPT: Surgical Specimen RECD BY: Cherie Holden ENTERED: 05/02/21 12:31 SP TYPE: TONSIL OTHR DR: Ralph Venegas Tissues: 1 - TONSIL AGE 17 & OVER 2 - TONSIL AGE 17 & OVER Procedures: GROSS AND MICRO LEVEL 3 Comments: [id number]
--- NOTE | 2021-05-02 09:25 | ROE_ITS ---
Operative Note Operative Note DATE OF PROCEDURE: 05/02/21 PRE-OP DIAGNOSIS: Chronic tonsillitis/tonsillar hypertrophy POST-OP DIAGNOSIS: same PROCEDURE: Tonsillectomy SURGEON: Mauricio Arita ANESTHESIA TYPE: General LMA/ETT Refer to Anesthesia Record ESTIMATED BLOOD LOSS: 30 PATHOLOGY: other (tonsils) COMPLICATIONS: None Patient was transported to: PACU Patient's condition: stable Indications: Patient with the above problems. Options were explained regarding further management. She elected to undergo the above procedure. Consent was filled out and signed prior to surgery H&P was reviewed. Narcotics were discussed at length. Risks of narcotics were detailed Findings: 3+ tonsils, copious cryptic debris, tonsils friable, no significant adenoid, palate intact to inspection and palpation. Procedure Description: After obtaining an adequate level of general endotracheal anesthesia the patient was positioned in the supine position and prepped and draped in appropriate fashion. A Chris Jordon mouthgag was carefully introduced into the oral cavity and opened to reveal the soft and hard palate which were examined revealing no evidence of an occult cleft palate. Each tonsil was injected in a submucosal plane along the superior, anterior, and posterior aspects using 0.5% Marcaine with 1 200,000 epinephrine. A 12 blade was used to incise mucosa along the superior edge of the tonsil as well as the anterior and posterior edges. Mónica elevator was used to disarticulate the superior pole of the tonsil free from the tonsillar fossa and dissection was continued carefully down to the inferior pole at which point in time a tonsillar snare was used to remove the residual tonsillar tissue. Electrocautery suction tip catheter was used to achieve relative hemostasis in the tonsillar bed. Once this has been accomplished bilaterally, the Chris-Jordon mouth gag was relaxed and reopened r evealing no further bleeding. Valsalva failed to induce further bleeding. The Chris-Jorodn mouth gag was relaxed and reopened 1 more time revealing no further bleeding and then removed. The patient was then awakened and extubated by anesthesia and taken to recovery room in stable condition. I was present throughout the entire case
--- NOTE | 2021-05-02 09:30 | W.PM.DSUDISC ---
Discharge Plan Disposition Patient Disposition: HOME Condition: Good Discharge Details Reason For Visit: Tonsillectomy Attending Provider: Mauricio Arita Primary Care Provider: Ralph Venegas Home Meds and New Rx's Prescriptions: No Action prednisone 50 mg tablet 50 mg PO DAILY RF: 0 albuterol sulfate [ProAir HFA] 8.5 GM HFA aerosol inhaler 2 puff Inhalation Q4H PRN Qty: 1 RF: 5 Advair HFA 8 GM HFA aerosol inhaler 2 puff Inhalation BID Qty: 3 RF: 3 fluticasone propionate [Flonase Allergy Relief] 50 mcg/actuation spray,suspension 1 spray intranasal DAILY RF: 0 ipratropium-albuterol 0.5 mg-3 mg(2.5 mg base)/3 mL solution for nebulization 3 ml inhalation .Q4-6H PRNRF: 0 levothyroxine 50 mcg tablet 50 mcg PO DAILY RF: 0 omeprazole 20 mg Capsule,Delayed Release(Dr/Ec) 20 mg PO DAILY RF: 0 acetaminophen [Tylenol] 325 mg Capsule 325 RF: 0 loratadine [Claritin] 10 mg Tablet 10 mg PO DAILY RF: 0 Discharge Instructions Stand Alone Forms: ENT- T&A Instr. Lyla Referrals: Mauricio Arita MD [ [facility] STAFF PHYSICIAN] - (1 month, please call for appointment prior to patient's departure) Discharge Orders Discharge Orders: Discharge Order (Routine); Ordered 05/02/21 Ordered By: Mauricio Arita
[2021-05-02] MEDS: fentaNYL 100 MCG/2 ML VIAL IVP ×2 (09:36→09:59)
[2021-05-02] MEDS: ACETAMINOPHEN 1,000 MG/100 ML BTL 400 MG IVPB (09:40)
--- NOTE | 2021-05-02 09:56 | W.ANESPOSTOP ---
Postoperative Evaluation Date, Time and Location Date Performed: 05/02/21 Time Performed: 09:57 Patient Location: PACU Vital Signs Most Recent Imported Vital Signs: Most Recent Vital Signs Temp Pulse Resp BP Pulse Ox 36.2 C L 81 11 L 131/76 96 05/02/21 09:35 05/02/21 09:35 05/02/21 09:35 05/02/21 09:35 05/02/21 09:35 Pain Score Most Recent Pain Score: Most Recent Pain Score Pain Level 8 05/02/21 09:35 Assessment Mental Status: Awake (Alert & Oriented to Patient Baseline) Airway and Respiratory Function: Patent airway with normal (patient baseline) respiratory exam Cardiovascular Function: Hemodynamically Stable Hydration Status: Adequately Hydrated Nausea & Vomiting: No Nausea or Vomiting Pain: Pain is Moderate or Severe Postoperative Pain Management: Pain being addressed with medication Peripheral Nerve Block: Patient did not receive a nerve block
[2021-05-02] MEDS: Normal Saline 10 ML VIAL IJ (10:12)
[2021-05-02] MEDS: HYDROmorphone 2 MG/ML VIAL IVP (10:12)
[2021-05-02] MEDS: Ibuprofen 800 MG TAB PO (11:50)
--- NOTE | 2021-05-02 14:18 | NUR.NOTE ---
1239: This nurse spoke to Dr. Arita regarding pt's inquiry as to whether she should take her final 50 mg dose of prednisone today. MD instructed nurse to call pt. and instructed her not to take that dose and the he would be in contact with pt. regarding her prednisone. This nurse contacted pt. on her cell phone and informed her of conversation with MD, pt. understands not to take dose and the MD will be in touch later today. ursing Note:
== END 2021-05-02 12:25 | disposition home or self-care (01) ==
PROVIDERS: PCP Physician Assistant; Visit Provider Otolaryngology
PROC: (CPT 42826; principal; 2021-05-02 08:30)
DX: J35.01 Chronic tonsillitis (principal); J45.909 Unspecified asthma, uncomplicated; E03.9 Hypothyroidism, unspecified
CPT/HCPCS: 42826; 88304; J0131; J0690; J1720; J2001; J2405; J2704; J3010; J3475

== ENCOUNTER 2021-06-23 08:13 | Emergency (ER) | payer OTHER, SELFPAY ==
--- NOTE | 2021-06-23 08:15 | W.ED.GENAD ---
Discharge Plan Disposition Patient Disposition: HOME Condition: Stable Discharge Details Clinical Impression: Cellulitis of left knee, Skin pustule Primary Care Provider: Ralph Venegsa ED Provider: Jaimie York Home Meds and New Rx's Prescriptions: New cephalexin 500 mg capsule 500 mg PO QID 7 Days Qty: 28 0RF Continued albuterol sulfate [ProAir HFA] 8.5 GM HFA aerosol inhaler 2 puff Inhalation Q4H PRN Qty: 1 5RF Advair HFA 8 GM HFA aerosol inhaler 2 puff Inhalation BID Qty: 3 3RF ipratropium-albuterol 0.5 mg-3 mg(2.5 mg base)/3 mL solution for nebulization 3 ml inhalation .Q4-6H PRN0RF levothyroxine 50 mcg tablet 50 mcg PO DAILY 0RF Label Comments: TAKE ONE TABLET BY MOUTH EVERY DAY loratadine [Claritin] 10 mg Tablet 10 mg PO DAILY 0RF sulfamethoxazole-trimethoprim 800-160 mg tablet 1 tab PO .Q12 HRS 0RF Label Comments: TAKE ONE TABLET BY MOUTH EVERY 12 HOURS FOR 7 DAYS hydroxyzine HCl 25 mg tablet 25 mg PO BID PRN0RF Label Comments: TAKE ONE TABLET BY MOUTH TWICE A DAY NEEDED FOR ANXIETY sertraline 50 mg tablet 50 mg PO DAILY 0RF Label Comments: TAKE ONE TABLET BY MOUTH EVERY DAY Discharge Instructions Instructions: Cellulitis (ED) Additional Instructions: Keep wound clean and dry. You may shower and wash the area with soap and water and let water run down your leg and then pat dry. Cover wound with bandage if risk of contamination or if wearing pants. Otherwise you can keep the wound open to air if resting at home to allow edges to dry and heal. Rest and elevate your left leg as much as possible. You can apply warm compresses to the affected area to help draw the infection to the head which may help if you develop any other pustules. Alternate tylenol and motrin as needed and directed for pain. Take the Bactrim as directed until finished. Fill your prescription for Keflex today and take this as directed until finished. Call your primary care doctor for a follow-up appointment early next week for reevaluation. You can also follow-up with Dr. Chauhan in the orthopedics office next week if you are unable to see your primary care doctor. Return immediately to the emergency department if you develop any worsening or new concerning symptoms such as fever, increased pain, redness or swelling. Referrals: Sim Chauhan MD [ [facility] STAFF PHYSICIAN] - Discharge Data Discharge Date/Time-TO BE ENTERED AT DEPARTURE: 06/23/21 09:33 Discharge Physician: Jaimie York Medical Decision Making 35-year-old female with a history of asthma, anxiety and obesity diagnosed with left knee cellulitis 4 days ago at [facility] ER currently taking Bactrim presents with concern for a blister on her knee and requesting evaluation. Compared to pictures she has on her phone from 4 days ago until today, her left knee cellulitis appears significantly improved. There does appear to be a 1.5 x 1 cm pustule on the left anterior knee within the area of cellulitis. There is also a scaly lesion with white discoloration just superior to this but is not significantly raised. Pictures taken of today's presentation with patient consent and discussed with Dr. Chauhan who agrees with plan for puncture at the pustule site, and adding Keflex. A puncture was made at the pustule site all the noted pus within pustule released. Patient admitted to relief of pain. The area was irrigated, bacitracin and small Band-Aid placed. Skin markings placed around edge of cellulitis. She was given a dose of Keflex here as well as prescription. Advised to rest and elevate the leg is much as possible. Advised to take her Bactrim until finished. She was advised to follow-up with her PCP or orthopedics for reevaluation next week. Usual and customary return precautions given prior to discharge. Medical Records Medical records reviewed: Yes I reviewed the patient's medical records. HPI General Mode of arrival: ambulatory. Date/Time Provider Initiated Documentation: 06/23/21 08:14. Limitations to Documentation: no limitations. Information obtained by: patient. HPI Narrative: Patient is a 35-year-old female with a history of asthma, anxiety and obesity presents for evaluation of left knee cellulitis that was diagnosed 4 days ago at [facility] and has been treated with Bactrim. Patient states she developed a small pimple and redness on her left knee 1 week ago which then progressed to increasing redness, swelling and pain of her entire lower leg. She states she initially went to an urgent care and then by ambulance to [facility] ER 4 days ago after she developed nausea, dizziness and a temp of 103. She was subsequently tested for Covid at [facility] ER and was positive. She states she is vaccinated but has not received a booster. She states her nausea, dizziness and fever have improved and denies any shortness of breath or vomiting. She states last night she noted a pustule developing within the area of the knee redness and was concerned. She states overall her left knee and leg redness, swelling and pain has significantly improved. She states she thinks she initially developed wounds due to shaving and denies any excessive kneeling or other injury. Related Data Home Medications Medication Instructions Recorded Confirmed albuterol sulfate 90 mcg/actuation 2 puff INHALATION Q4H PRN #1 11/29/16 06/23/21 aerosol inhaler (ProAir HFA) inhaler fluticasone propionate 115 2 puff INHALATION BID #3 inhaler 11/29/16 06/23/21 mcg-salmeterol 21 mcg/actuation HFA inhaler (Advair HFA) levothyroxine 50 mcg tablet 50 mcg PO DAILY 08/22/19 06/23/21 loratadine 10 mg tablet (Claritin) 10 mg PO DAILY 12/10/19 06/23/21 ipratropium 0.5 mg-albuterol 3 mg 3 ml INHALATION .Q4-6H PRN ml 04/27/21 06/23/21 (2.5 mg base)/3 mL nebulization soln cephalexin 500 mg capsule 500 mg PO QID 7 Days #28 cap 06/23/21 hydroxyzine HCl 25 mg tablet 25 mg PO BID PRN 06/23/21 06/23/21 sertraline 50 mg tablet 50 mg PO DAILY 06/23/21 06/23/21 sulfamethoxazole 800 1 tab PO .Q12 HRS 06/23/21 06/23/21 mg-trimethoprim 160 mg tablet Previous Rx's Medication Instructions Recorded cephalexin 500 mg capsule 500 mg PO QID 7 Days #28 cap 06/23/21 Allergies Allergy/AdvReac Type Severity Reaction Status Date / Time cat dander AdvReac Intermediate Verified 06/23/21 08:32 seasonal allergies Allergy Uncoded 06/23/21 08:32 General Stated Complaint: Cellulitis LEODAN: 3 Review of Systems All systems reviewed & are unremarkable except as noted in HPI and below Constitutional Constitutional: Reports as per HPI, Denies chills and Denies fever(s) Eyes Eyes: Denies blurry vision ENT Ears, Nose, Mouth, and Throat: Denies dizziness, Denies sore throat and Denies throat swelling Cardiovascular Cardiovascular: Denies chest pain and Denies dyspnea Respiratory Respiratory: Denies cough and Denies dyspnea Gastrointestinal Gastrointestinal: Denies abdominal pain, Denies diarrhea and Denies vomiting Genitourinary Genitourinary: Denies hematuria and Denies dysuria Musculoskeletal Musculoskeletal: Denies back pain and Denies numbness Integumentary/Breasts Skin/Breast: Reports lesions and Reports rash Neurologic Neurologic: Denies dizziness, Denies localized weakness and Denies numbness Allergic/Immunologic Allergic/Immunologic: Denies throat swelling PFSH All Active Problems (Updated 06/23/21 @ 09:18 by Jaimie York DO) Cellulitis of left knee (Acute) Skin pustule (Acute) RUQ pain (Acute 07/03/14) Asthma (Chronic) H/O surgical procedure (Chronic) a. two C-sections Encounter for screening for other viral diseases (Acute) Encounter for screening laboratory testing for COVID-19 virus (Acute) Tonsil asymmetry (Acute) Tonsillitis (Acute) Tonsillar hypertrophy (Acute) Chronic tonsillitis (Acute) Medical History (Updated 06/23/21 @ 09:18 by Jaimie York DO) Allergic rhinitis Anxiety Asthma History of use of contraceptive intrauterine device (IUD) Pt. reports IUD inplace during admission assessment Hypothyroidism Surgical History section x2 Cholecystectomy (07/04/14) at [facility] Hx of cholecystectomy Hx of tonsillectomy 05/02/2021 Family History Brother Diabetes Other Cancer Social History Smoking/Tobacco Use Status: Never Smoking risk assessment performed?: Yes Alcohol Intake: current Alcohol Intake frequency: holidays/special occasions only Alcohol type: beer Drug use: Never Substance use type: does not use Details: Alcohol last used at new Year Pets and animals: Yes Pets and animals: cat(s) and dog(s) Do you feel safe at home: Yes Do you feel safe in your relationship?: Yes Exam Const General: cooperative, healthy appearing, no acute distress and anxious Orientation: alert, awake and oriented x3 HENMT Head: normal to inspection Mouth: oral mucosae normal Eyes General: appearance normal, both eyes and all related structures Neck Neck: normal visual inspection Resp Effort & Inspection: normal respiratory effort and able to speak in complete sentences Cardio Rate: regular rate Skin General skin exam: no rashes or lesions noted Neuro General: patient alert, patient awake and patient oriented x3 Motor: muscle tone normal throughout Extrem Knee images: 1. 1.5 x 1 cm irregularly shaped raised pustule. 2. 2 x 3 cm crusted lesion with tiny pustules within and a 4 x 4 millimeter crusted flat lesion in the center. 3. Erythema Other: Left PT/PT pulses intact. No left calf tenderness. Psych Appearance: grossly normal Affect: normal affect Procedures Abscess I/D Site: Lower Extremity (knee) Side (if applicable): Left Technique: Other (unroofed using tip of 18G needle) Amount of fluid expressed (mL): 1 Irrigation: Yes Packing used?: None
[2021-06-23 08:26] VITALS: BP 157/107; PULSE 111; RESP 16; TEMP 36.5; O2SAT 99
[2021-06-23 09:26] VITALS: BP 140/79; PULSE 63; O2SAT 97
[2021-06-23] MEDS: Cephalexin 500 MG CAP PO (09:29)
[2021-06-23 09:32] VITALS: BP 140/79; PULSE 63; RESP 16; O2SAT 97
== END 2021-06-23 09:33 | disposition home or self-care (01) ==
PROVIDERS: Emergency Provider Physician Assistant; PCP Physician Assistant
DX: L03.116 Cellulitis of left lower limb (principal); L08.9 Local infection of the skin and subcutaneous tissue, unspecified
CPT/HCPCS: 10060

== ENCOUNTER 2021-07-25 21:06 | Outpatient (REF) | payer OTHER, SELFPAY ==
[2021-07-25 19:48] LABS: Abs Immature Grans 0.01 10^3/uL (0.0-0.06); Absolute Basophil Count 0.02 10^3/uL (0.0-0.2); Absolute Eosinophil Count 0.19 10^3/uL (0.0-0.7); Absolute Lymphocyte Count 2.64 10^3/uL (1.2-3.4); Absolute Monocyte Count 0.54 10^3/uL (0.1-0.8); Absolute Neutrophil Count 3.98 10^3/uL (1.2-6.7); Basophils % 0.3; Eosinophils % 2.6; HCT 42.4 % (36.0-46.0); Immature Grans % 0.1; Lymphocytes % 35.8; MCH 29.7 pg (27.0-33.0); MCV 89.8 fL (80-95); MPV 11.7 fL (8.0-11.0); Monocytes % 7.3; Neutrophils % 53.9; Nucleated RBC 0 %; Platelet Count 200 10^3/uL (130-400); RBC 4.72 10^6/uL (3.93-5.22); RDW 13.5 % (11.7-14.6); RDW-SD 44.7 fL; WBC 7.38 10^3/uL (4.4-10.8)
[2021-07-27 10:00] LABS: IgE 21 IU/mL (<158)
== END 2021-07-25 21:07 | disposition home or self-care (01) ==
LOC: LBN 21:06
PROVIDERS: PCP Physician Assistant; Visit Provider Student in an Organized Health Care Education/Training Program
DX: J45.909 Unspecified asthma, uncomplicated (principal)
CPT/HCPCS: 82785; 85025

== ENCOUNTER 2021-07-28 01:22 | Outpatient (CLI) | payer OTHER, SELFPAY ==
--- NOTE | 2021-07-28 06:29 | DI.RAD_ITS ---
Exam(s) XR CHEST 2V PA LATERAL EXAM: XR CHEST 2V PA LATERAL CLINICAL HISTORY: Dyspnea, cough,asthma,j45.909 TECHNIQUE: 2D digital imaging was performed. COMPARISON: CR CHEST 2 VIEWS PA,LAT from 05/23/2017 FINDINGS: The heart is not enlarged. The lungs are clear and well expanded. No pleural effusion seen. Mediastin al contours appear intact. IMPRESSION: Normal chest. RADIATION DOSE DELIVERED: Total DLP
== END 2021-07-28 01:42 ==
PROVIDERS: PCP Physician Assistant; Visit Provider Student in an Organized Health Care Education/Training Program
DX: J45.909 Unspecified asthma, uncomplicated (principal); R06.09 Other forms of dyspnea
CPT/HCPCS: 71046

== ENCOUNTER 2021-08-09 06:17 | Outpatient (CLI) | payer OTHER, SELFPAY ==
[2021-08-09] MEDS: Inhaler, Assist Device 1 EACH MC (09:45)
[2021-08-09] MEDS: Albuterol HFA 18 GM 200 PUFF INH IH (09:45)
== END 2021-08-09 06:18 | disposition home or self-care (01) ==
LOC: RT 06:17
PROVIDERS: PCP Physician Assistant; Visit Provider Student in an Organized Health Care Education/Training Program
DX: J45.909 Unspecified asthma, uncomplicated (principal)
CPT/HCPCS: 94060; 94726; 94729

== ENCOUNTER 2021-09-05 09:53 | Outpatient (REF) | payer OTHER, SELFPAY ==
[2021-09-05 19:29] LABS: Calculated LDL 89 mg/dL (<100); Cholesterol 151 mg/dL (<200); HDL Cholesterol 49 mg/dL (40-60); TSH 3.34 uIU/mL (0.36-3.74); Triglyceride 68 mg/dL (<150)
== END 2021-09-05 09:54 | disposition home or self-care (01) ==
LOC: NCHCN 09:53
PROVIDERS: PCP Physician Assistant; Visit Provider Physician Assistant
DX: E03.9 Hypothyroidism, unspecified (principal); E66.8 Other obesity; Z68.42 Body mass index [BMI] 45.0-49.9, adult
CPT/HCPCS: 80061; 84443

== ENCOUNTER 2021-10-11 11:13 | Outpatient (REF) | payer OTHER, SELFPAY | END 2021-10-11 11:14 | disposition home or self-care (01) | LOC: LBN 11:13 | PROVIDERS: PCP Physician Assistant; Visit Provider Nurse Practitioner Family | DX: J02.9 Acute pharyngitis, unspecified (principal) | CPT/HCPCS: 87070 ==

== ENCOUNTER 2021-10-13 15:05 | Outpatient (REF) | payer OTHER, SELFPAY ==
[2021-10-14 10:57] LABS: COVID-19 RT-PCR UVMMC Result Negative (Negative)
== END 2021-10-13 15:06 | disposition home or self-care (01) ==
LOC: LBN 15:05
PROVIDERS: PCP Physician Assistant; Visit Provider Physician Assistant Medical
DX: Z20.822 Contact with and (suspected) exposure to COVID-19 (principal); J06.9 Acute upper respiratory infection, unspecified
CPT/HCPCS: U0003

== ENCOUNTER 2021-11-07 04:30 | Outpatient (CLI) | payer OTHER, SELFPAY ==
[2021-11-08 10:19] LABS: HIV-1/2 Ag & Ab Screen Negative (Negative)
[2021-11-08 10:21] LABS: IgA 206 mg/dL (85-499); IgG 923 mg/dL (610-1,616); IgM 121 mg/dL (35-242)
== END 2021-11-07 04:31 | disposition home or self-care (01) ==
PROVIDERS: PCP Physician Assistant; Visit Provider Student in an Organized Health Care Education/Training Program
DX: J45.909 Unspecified asthma, uncomplicated (principal); B99.9 Unspecified infectious disease
CPT/HCPCS: 36415; 82784; 87389; 82787

== ENCOUNTER 2022-01-09 18:15 | Outpatient (REF) | payer OTHER, SELFPAY ==
[2022-01-09 21:04] LABS: Bilirubin Negative (Negative); Blood Trace-intact (Negative); Clarity Clear (Clear); Glucose Negative (Negative); Ketones Negative (Negative); Leukocyte Esterase Negative (Negative); Nitrite Negative (Negative)
[2022-01-09 21:30] LABS: Bacteria Few HPF (Negative); C & S Indicated? Yes; Casts Negative LPF (Negative); Crystals Negative HPF (Negative); Epithelial Cells Negative HPF (Negative); Mucus Negative (Negative); Other Cells Negative (Negative); RBC Negative HPF (0-2); WBC >50 HPF (0-5)
== END 2022-01-09 18:16 | disposition home or self-care (01) ==
LOC: LBN 18:15
PROVIDERS: PCP Physician Assistant; Visit Provider Physician Assistant
DX: R39.9 Unspecified symptoms and signs involving the genitourinary system (principal)
CPT/HCPCS: 87077; 81003; 81015; 87086; 87186

== ENCOUNTER 2022-01-10 04:10 | Emergency (ER) | payer OTHER, SELFPAY ==
[2022-01-10 04:16] VITALS: BP 133/79; PULSE 82; RESP 16; TEMP 36.5; O2SAT 98
--- NOTE | 2022-01-10 04:17 | ED.GENADUL_ITS ---
Discharge Plan Disposition Patient Disposition: HOME Condition: Improving Discharge Details Clinical Impression: Pyelonephritis Primary Care Provider: Ralph Venegas ED Provider: Darius Argueta Conklin Meds and New Rx's Prescriptions: New ciprofloxacin HCl 500 mg tablet 500 mg PO BID Qty: 20 0RF Continued Advair HFA 230-21 mcg/actuation HFA aerosol inhaler 2 puff inhalation BID Qty: 12 8RF montelukast [Singulair] 10 mg tablet 10 mg PO DAILY Qty: 30 12RF benzonatate 100 mg capsule 100 mg PO TID PRN (Reason: cough) Qty: 14 0RF albuterol sulfate [ProAir HFA] 8.5 GM HFA aerosol inhaler 2 puff Inhalation Q4H PRN Qty: 1 ipratropium-albuterol 0.5 mg-3 mg(2.5 mg base)/3 mL solution for nebulization 3 ml inhalation .Q4-6H PRN levothyroxine 50 mcg tablet 50 mcg PO DAILY Label Comments: TAKE ONE TABLET BY MOUTH EVERY DAY loratadine [Claritin] 10 mg Tablet 10 mg PO DAILY hydroxyzine HCl 25 mg tablet 25 mg PO BID PRN Label Comments: TAKE ONE TABLET BY MOUTH TWICE A DAY NEEDED FOR ANXIETY sertraline 50 mg tablet 50 mg PO DAILY Label Comments: TAKE ONE TABLET BY MOUTH EVERY DAY Discontinued nitrofurantoin monohyd/m-cryst [Macrobid] 100 mg capsule 100 mg PO Q12H 5 Days Qty: 10 0RF Rx Instructions: must administer with a meal/food Discharge Instructions Instructions: Kidney Infection (ED) Additional Instructions: You were seen for left back pain in the setting of a known UTI. Your laboratory studies tonight were reassuring. Your CT scan shows no evidence of obstruction or kidney stone. Your infection has gone from a simple bladder infection to a kidney infection and will require different antibiotic. You were dosed with IV antibiotic this morning. You should start your new antibiotic this evening. Discontinue the other antibiotic. Follow-up with primary care next week. Return to ED for spiking fevers, worsening pain, persistent vomiting, other concerns. Medical Decision Making Patient's urinalysis from yesterday is positive for UTI by micro. Patient now having left flank pain with differential being infected stone versus acute pyelonephritis. She appears quite uncomfortable. Plan for IV, ketorolac, ceftriaxone, fluids, labs, stone study. Patient's pain is improved after ketorolac. CBC and chemistries are unremarkable. Urine tonight contaminated but previous urine from yesterday with definite infection on micro results. CT scan without evidence of stone or obstructive uropathy. We will plan to discontinue Macrobid and start ciprofloxacin for treatment of pyelonephritis. Patient to follow-up with primary care next week. Return to ED for spiking fevers, worsening pain, persistent vomiting, other concerns or problems. Lab Data Lab results reviewed: Yes I reviewed the patient's lab results. HPI General Mode of arrival: ambulatory . Date/Time Provider Initiated Documentation: 01/10/22 04:13 . Limitations to Documentation: no limitations . Information obtained by: patient, RN notes reviewed and old records reviewed . HPI Narrative: Patient presents to ED with left flank pain. Patient was seen at [facility] on the with urinary symptoms including suprapubic pressure, urgency, dysuria. She was started on Macrobid based on positive leukocytes and blood on dipstick. Urinalysis was sent. Patient has taken 1 dose of the antibiotic. She is now experiencing significant left back and flank pain in the area of the left kidney. There is no radiation of the pain. She has had no fever or chills. She has had nausea but no vomiting. She has no history of kidney stones. She denies any cough, shortness of breath, chest pain. She did not take anything at home prior to coming in. She reports pain has lessened slightly since coming in. Related Data Home Medications Medication Instructions Recorded Confirmed albuterol sulfate 90 mcg/actuation 2 puff inhalation Q4H PRN ##1 11/29/16 01/10/22 aerosol inhaler (ProAir HFA) levothyroxine 50 mcg tablet 50 mcg PO DAILY 08/22/19 01/10/22 loratadine 10 mg tablet (Claritin) 10 mg PO DAILY 12/10/19 01/10/22 ipratropium 0.5 mg-albuterol 3 mg 3 ml inhalation .Q4-6H PRN 04/27/21 01/10/22 (2.5 mg base)/3 mL nebulization soln hydroxyzine HCl 25 mg tablet 25 mg PO BID PRN 06/23/21 01/10/22 sertraline 50 mg tablet 50 mg PO DAILY 06/23/21 01/10/22 fluticasone propionate 230 2 puff inhalation BID #12 grams 07/25/21 01/10/22 mcg-salmeterol 21 mcg/actuation HFA inhaler (Advair HFA) montelukast 10 mg tablet 10 mg PO DAILY #30 tabs 07/25/21 01/10/22 (Singulair) benzonatate 100 mg capsule 100 mg PO TID PRN cough #14 caps 12/01/21 01/10/22 ciprofloxacin HCl 500 mg tablet 500 mg PO BID #20 tabs 01/10/22 Previous Rx's Medication Instructions Recorded fluticasone propionate 230 2 puff inhalation BID #12 grams 07/25/21 mcg-salmeterol 21 mcg/actuation HFA inhaler (Advair HFA) montelukast 10 mg tablet 10 mg PO DAILY #30 tabs 07/25/21 (Singulair) benzonatate 100 mg capsule 100 mg PO TID PRN cough #14 caps 12/01/21 ciprofloxacin HCl 500 mg tablet 500 mg PO BID #20 tabs 01/10/22 Allergies Allergy/AdvReac Type Severity Reaction Status Date / Time cat dander AdvReac Intermediate Verified 01/10/22 04:22 seasonal allergies Allergy Uncoded 01/10/22 04:22 General LEODAN: 3 Review of Systems Narrative: 01/27 Review of Systems completed and is negative except as stated above in HPI (Systems reviewed: Const, Eyes, ENT, Resp, CV, GI, , MSK, Skin, Neuro) PFSH All Active Problems (Updated 01/10/22 @ 06:55 by Darius Argueta MD) Pyelonephritis (Acute) Recurrent infections (Acute) Dyspnea and respiratory abnormalities (Acute) RUQ pain (Acute 07/03/14) Asthma (Chronic) H/O surgical procedure (Chronic) a. two C-sections Encounter for screening for other viral diseases (Acute) Encounter for screening laboratory testing for COVID-19 virus (Acute) Tonsil asymmetry (Acute) Tonsillitis (Acute) Tonsillar hypertrophy (Acute) Chronic tonsillitis (Acute) Medical History Allergic rhinitis Anxiety Asthma History of use of contraceptive intrauterine device (IUD) Pt. reports IUD inplace during admission assessment Hypothyroidism Surgical History section x2 Cholecystectomy (07/04/14) at [facility] Hx of tonsillectomy 05/02/2021 Family History Brother Diabetes Other Cancer Social History Smoking/Tobacco Use Status: Never Smoking risk assessment performed?: Yes Alcohol Intake: current Alcohol Intake frequency: holidays/special occasions only Alcohol type: beer Drug use: Never Substance use type: does not use Details: Alcohol last used at new Year Pets and animals: Yes Pets and animals: cat(s) and dog(s) Do you feel safe at home: Yes Do you feel safe in your relationship?: Yes Exam Narrative Exam Narrative: Const: Obese female who appears uncomfortable. HEENT: NC/AT. Normal facial exam. Eyes: Normal conjunctiva and sclera. Neck: Supple. Trachea midline. Lungs: Normal respiratory effort. Lungs are clear. Cor: RRR without murmur/gallop. Good radial pulses. GI: Soft. NT/ND. No guarding or rebound. Back: Left CVAT Neuro: A+O x 3. Normal speech, mentation, gait. Cranial nerves II - XII grossly intact. No gross motor or sensory deficit. Ext: No C/C/E. Skin: Warm and dry without rash.
[2022-01-10 04:28] LABS: Bilirubin Negative (Negative); Blood Small (Negative); Clarity Sl Cloudy (Clear); Glucose Negative (Negative); Ketones Negative (Negative); Leukocyte Esterase Trace (Negative); Nitrite Negative (Negative); Urobilinogen 0.2 EU/dL (Up TO 0.2)
--- NOTE | 2022-01-10 04:30 | DI.CT_ITS ---
Exam(s) CT RENAL COLIC WO EXAM: CT RENAL COLIC WO CLINICAL HISTORY: left flank pain. TECHNIQUE: Imaging Protocol: Axial computed tomography images with coronal and sagittal reformatted images were created and reviewed. COMPARISON: CT CT CHEST/ABD/PEL W from 12/10/2019 FINDINGS: ABDOMEN: Lung Bases: Normal where visualized. Liver: Normal density. No measurable mass. Gallbladder and biliary tract: Status post cholecystectomy. No biliary ductal dilatation. Pancreas: Normal density, no abnormal calcifications or inflammatory process. Spleen: Normal. Kidneys: Normal size, contour and axis.No radiodense stones or obstructive uropathy. No masses seen. Adrenal glands: No mass is seen. Lymph nodes: Within normal limits. Abdominal Aorta: Abdominal portion non-dilated. PELVIS: Bladder:Incompletely distended. There is some thickening of the wall of the urinary bladder. Mild s tranding is seen around the urinary bladder. Bowel: No obstruction or bowel wall thickening. Appendix is unremarkable. There are few scattered di verticula seen in the descending and sigmoid colon, but no evidence of acute diverticulitis. Peritoneal cavity: No ascites, collection or mesenteric inflammatory response. No free air. Reproductive organs: There is an IUD which appears in good position. There is a 4.8 x 5.1 cm left ad nexal cyst which is likely ovarian in origin. Bones: Within normal limits. Soft Tissues: There is a small midline supraumbilical fat containing anterior abdominal wall hernia. IMPRESSION: 1. No evidence of nephrolithiasis or hydronephrosis. 2. Mild thickening of the wall of the urinary bladder. While this may be due to underdistention, an inflammatory or infectious cystitis cannot be excluded. Please correlate clinically. 3. 5 cm left ovarian cyst. Follow-up as clinically appropriate. RADIATION DOSE DELIVERED: 1,599.12mGy.cm Total DLP DATA REPOSITORY: All CT scans at this facility are submitted to the National Radiology Data Registry (NRDR) Dose Index Registry (DIR) with the [employer] ([employer]). RADIATION OPTIMIZATION: All CT scans at this facility use at least one of these dose optimization te chniques: automated exposure control; mA and/or kV adjustment per patient size (includes targeted exa ms where dose is matched to clinical indication); or iterative reconstruction.
[2022-01-10 04:41] LABS: Bacteria Few HPF (Negative); C & S Indicated? No/Sq. Contamination; Casts Negative LPF (Negative); Crystals Negative HPF (Negative); Epithelial Cells Many HPF (Negative); Mucus Trace (Negative); WBC 20-50 HPF (0-5)
[2022-01-10] MEDS: Normal Saline 1,000 ML 1000 ML IV (04:45)
[2022-01-10 04:46] LABS: Abs Immature Grans 0.02 10^3/uL (0.0-0.06); Absolute Basophil Count 0.06 10^3/uL (0.0-0.2); Absolute Lymphocyte Count 2.71 10^3/uL (1.2-3.4); Absolute Monocyte Count 0.75 10^3/uL (0.1-0.8); Absolute Neutrophil Count 5.58 10^3/uL (1.2-6.7); Basophils % 0.6; Eosinophils % 2.1; HCT 40.8 % (36.0-46.0); HGB 14.4 g/dL (11.2-15.7); Immature Grans % 0.2; Lymphocytes % 29.1; MCH 31.2 pg (27.0-33.0); MCHC 35.3 % (32.0-36.0); MCV 88 fL (80-95); MPV 10.6 fL (8.0-11.0); Platelet Count 189 10^3/uL (130-400); RBC 4.62 10^6/uL (3.93-5.22); RDW 12.6 % (11.7-14.6); RDW-SD 40.8 fL; WBC 9.32 10^3/uL (4.4-10.8)
[2022-01-10] MEDS: Ketorolac 30 MG/ML VIAL IVP (04:50)
[2022-01-10 04:58] LABS: Anion Gap 8.3 mmol/L (3-11); BUN 13 mg/dL (7-18); CO2 26.7 mmol/L (21.0-32.0); CREATININE 0.8 mg/dL (0.55-1.02); Calcium 8.8 mg/dL (8.5-10.1); Chloride 104 mmol/L (98-107); Estimated GFR 97.26 (mL/min/1.73m2); Glucose 114 mg/dL (74-106); Potassium 3.8 mmol/L (3.5-5.1); Sodium 139 mmol/L (136-145)
--- NOTE | 2022-01-10 06:28 | DI.VRAD_ITS ---
PROCEDURE INFORMATION: Exam: CT Abdomen And Pelvis Without Contrast Exam date and time: 01/10/2022 5:09 AM Age: 36 years old Clinical indication: Abdominal pain; Left; Prior surgery; Surgery date: 6+ months; Surgery type: 2 c-sections and cholecystectomy; Patient HX: L flank pain radiating into llq TECHNIQUE: Imaging protocol: Computed tomography of the abdomen and pelvis without contrast. Radiation optimization: All CT scans at this facility use at least one of these dose optimization techniques: automated exposure control; mA and/or kV adjustment per patient size (includes targeted exams where dose is matched to clinical indication); or iterative reconstruction. COMPARISON: CT CHEST/ABD/PEL W 12/10/2019 1:08 PM FINDINGS: Liver: Normal. No mass. Gallbladder and bile ducts: Prior cholecystectomy. No ductal dilation. Pancreas: Normal. No ductal dilation. Spleen: Normal. No splenomegaly. Adrenal glands: Normal. No mass. Kidneys and ureters: Normal. No hydronephrosis. Stomach and bowel: Minimal colonic diverticulosis No obstruction. No mucosal thickening. Appendix: No evidence of appendicitis. Intraperitoneal space: Unremarkable. No free air. No significant fluid collection. Vasculature: Unremarkable. No abdominal aortic aneurysm. Lymph nodes: Unremarkable. No enlarged lymph nodes. Urinary bladder: Partially decompressed and question minimally thickened. Reproductive: Unremarkable as visualized. Ovarian cyst measuring 5 cm. Intrauterine device in the uterus Bones/joints: Degenerative changes in the spine. No acute fracture. Soft tissues: Unremarkable. IMPRESSION: Minimal/mild cystitis cannot be completely excluded No CT evidence for obstructive uropathy Colonic diverticulosis without diverticulitis 5 cm left ovarian cyst. Further evaluation as clinically indicated Dictated and Authenticated by: Yonatan Mccann MD. Ordering:RAYNA Mccoy MD
== END 2022-01-10 07:27 | disposition home or self-care (01) ==
PROVIDERS: Emergency Provider Emergency Medicine; PCP Physician Assistant
DX: N12 Tubulo-interstitial nephritis, not specified as acute or chronic (principal); N39.0 Urinary tract infection, site not specified; J45.909 Unspecified asthma, uncomplicated; Z79.51 Long term (current) use of inhaled steroids
CPT/HCPCS: 36415; 80048; 81025; 96365; 96375; 99284; 74176; 81003; 81015; 85025; J0696; J1885

== ENCOUNTER 2022-01-10 23:10 | Emergency (ER) | payer OTHER, SELFPAY ==
[2022-01-10 23:24] VITALS: BP 122/69; PULSE 69; RESP 16; TEMP 36.6; O2SAT 99
--- NOTE | 2022-01-10 23:35 | ED.GENADUL_ITS ---
Discharge Plan Disposition Patient Disposition: HOME Condition: Good Discharge Details Clinical Impression: Urinary urgency Primary Care Provider: Ralph Venegas ED Provider: Darius Argueta Meds and New Rx's Prescriptions: New phenazopyridine [Pyridium] 100 mg tablet 100 mg PO TID Qty: 4 0RF Continued Advair HFA 230-21 mcg/actuation HFA aerosol inhaler 2 puff inhalation BID Qty: 12 8RF montelukast [Singulair] 10 mg tablet 10 mg PO DAILY Qty: 30 12RF benzonatate 100 mg capsule 100 mg PO TID PRN (Reason: cough) Qty: 14 0RF albuterol sulfate [ProAir HFA] 8.5 GM HFA aerosol inhaler 2 puff Inhalation Q4H PRN Qty: 1 ipratropium-albuterol 0.5 mg-3 mg(2.5 mg base)/3 mL solution for nebulization 3 ml inhalation .Q4-6H PRN levothyroxine 50 mcg tablet 50 mcg PO DAILY Label Comments: TAKE ONE TABLET BY MOUTH EVERY DAY ciprofloxacin HCl 500 mg tablet 500 mg PO BID Qty: 20 0RF loratadine [Claritin] 10 mg Tablet 10 mg PO DAILY hydroxyzine HCl 25 mg tablet 25 mg PO BID PRN Label Comments: TAKE ONE TABLET BY MOUTH TWICE A DAY NEEDED FOR ANXIETY sertraline 50 mg tablet 50 mg PO DAILY Label Comments: TAKE ONE TABLET BY MOUTH EVERY DAY Discharge Instructions Additional Instructions: You were seen for urinary urgency which is a sensation of needing to urinate even when your bladder is not full. This is usually related to a UTI for which you are being treated for. Your vital signs are normal. Your bladder scan revealed only 100 mL of urine present. This does not suggest that you are retaining urine. You should continue your antibiotic. Your culture results are still pending. We will start you on Pyridium to help with the urgency sensation you are having. Follow-up with primary care at the end of the week if you do not feel improvement. Return to ED for spiking fever, worsening back pain or abdominal pain, vomiting, other concerns. Medical Decision Making Patient presenting with urinary urgency and a sensation of not emptying her bladder completely in the setting of diagnosed pyelonephritis 24 hours ago. She otherwise feels improved. Urine culture is still pending. Bladder scan was performed and only 100 mL of urine present in the bladder. Suspect symptoms re lated to associated cystitis and recommend trying Pyridium which she had declined previously at [facility]. Otherwise continue antibiotic while waiting for culture results. Follow-up with primary care at end of week if not improved. Return precautions discussed. HPI General Mode of arrival: ambulatory . Date/Time Provider Initiated Documentation: 01/10/22 23:13 . Limitations to Documentation: no limitations . Information obtained by: patient and RN notes reviewed . HPI Narrative: Patient presents to ED with continued symptoms of urgency, feeling like she is not emptying her bladder when she goes to the bathroom. She was seen by me last night and diagnosed with pyelonephritis. She reports no fevers or chills, improved back pain, no vomiting or abdominal pain. She continues to have urgency and is concerned that she is not emptying her bladder despite all the fluid she is drinking. She is not having significant pain in the abdomen. She has minimal dysuria. She is otherwise feels improved. Related Data Home Medications Medication Instructions Recorded Confirmed albuterol sulfate 90 mcg/actuation 2 puff inhalation Q4H PRN ##1 11/29/16 01/10/22 aerosol inhaler (ProAir HFA) levothyroxine 50 mcg tablet 50 mcg PO DAILY 08/22/19 01/10/22 loratadine 10 mg tablet (Claritin) 10 mg PO DAILY 12/10/19 01/10/22 ipratropium 0.5 mg-albuterol 3 mg 3 ml inhalation .Q4-6H PRN 04/27/21 01/10/22 (2.5 mg base)/3 mL nebulization soln hydroxyzine HCl 25 mg tablet 25 mg PO BID PRN 06/23/21 01/10/22 sertraline 50 mg tablet 50 mg PO DAILY 06/23/21 01/10/22 fluticasone propionate 230 2 puff inhalation BID #12 grams 07/25/21 01/10/22 mcg-salmeterol 21 mcg/actuation HFA inhaler (Advair HFA) montelukast 10 mg tablet 10 mg PO DAILY #30 tabs 07/25/21 01/10/22 (Singulair) benzonatate 100 mg capsule 100 mg PO TID PRN cough #14 caps 12/01/21 01/10/22 ciprofloxacin HCl 500 mg tablet 500 mg PO BID #20 tabs 01/10/22 01/10/22 phenazopyridine 100 mg tablet 100 mg PO TID #4 tabs 01/11/22 (Pyridium) Previous Rx's Medication Instructions Recorded fluticasone propionate 230 2 puff inhalation BID #12 grams 07/25/21 mcg-salmeterol 21 mcg/actuation HFA inhaler (Advair HFA) montelukast 10 mg tablet 10 mg PO DAILY #30 tabs 07/25/21 (Singulair) benzonatate 100 mg capsule 100 mg PO TID PRN cough #14 caps 12/01/21 ciprofloxacin HCl 500 mg tablet 500 mg PO BID #20 tabs 01/10/22 phenazopyridine 100 mg tablet 100 mg PO TID #4 tabs 01/11/22 (Pyridium) Allergies Allergy/AdvReac Type Severity Reaction Status Date / Time cat dander AdvReac Intermediate Verified 01/10/22 23:27 seasonal allergies Allergy Uncoded 01/10/22 23:27 General Stated Complaint: FlankPain LEODAN: 3 Review of Systems Narrative: 08/27 Review of Systems completed and is negative except as stated above in HPI (Systems reviewed: Const, Resp, CV, GI, Neuro) PFSH All Active Problems Pyelonephritis (Acute) Urinary urgency (Acute) Recurrent infections (Acute) Dyspnea and respiratory abnormalities (Acute) RUQ pain (Acute 07/03/14) Asthma (Chronic) H/O surgical procedure (Chronic) a. two C-sections Encounter for screening for other viral diseases (Acute) Encounter for screening laboratory testing for COVID-19 virus (Acute) Tonsil asymmetry (Acute) Tonsillitis (Acute) Tonsillar hypertrophy (Acute) Chronic tonsillitis (Acute) Medical History Allergic rhinitis Anxiety Asthma History of use of contraceptive intrauterine device (IUD) Pt. reports IUD inplace during admission assessment Hypothyroidism Surgical History section x2 Cholecystectomy (07/04/14) at [facility] Hx of tonsillectomy 05/02/2021 Family History Brother Diabetes Other Cancer Social History Smoking/Tobacco Use Status: Never Smoking risk assessment performed?: Yes Alcohol Intake: current Alcohol Intake frequency: holidays/special occasions only Alcohol type: beer Drug use: Never Substance use type: does not use Details: Alcohol last used at new Year Pets and animals: Yes Pets and animals: cat(s) and dog(s) Do you feel safe at home: Yes Do you feel safe in your relationship?: Yes Exam Narrative Exam Narrative: Const: Obese female in NAD. HEENT: NC/AT. Normal facial exam. Eyes: Normal conjunctiva and sclera. Neck: Supple. Trachea midline. Lungs: Normal respiratory effort. Cor: RRR without murmur/gallop. Good radial pulses. GI: Soft. NT/ND. Back: No CVAT tonight Neuro: A+O x 3. Normal speech, mentation, gait. Cranial nerves II - XII grossly intact. No gross motor or sensory deficit. Ext: No C/C/E. Skin: Warm and dry without rash. Course Vital Signs Vital signs: Vital Signs Temperature 97.9 F 01/10/22 23:24 Pulse 69 01/10/22 23:24 Respiratory Rate 16 01/10/22 23:24 Blood Pressure 122/69 01/10/22 23:24 Pulse Oximetry 99 01/10/22 23:24 Temperature 97.9 F 01/10/22 23:24 Temperature Source Tympanic 01/10/22 23:24 Pulse 69 01/10/22 23:24 Respiratory Rate 16 01/10/22 23:24 Respiratory Effort 01/10/22 23:24 Blood Pressure 122/69 01/10/22 23:24 Blood Pressure Position Sitting 01/10/22 23:24 Pulse Oximetry 99 01/10/22 23:24 Oxygen Delivery Method Room Air 01/10/22 23:24 Oxygen Flow Rate 0 01/10/22 23:24 Pain Level 4 01/10/22 23:24
[2022-01-11] MEDS: Phenazopyridine 100 MG TAB, 2 TABS/BTL PO (00:21)
== END 2022-01-11 00:25 | disposition home or self-care (01) ==
PROVIDERS: Emergency Provider Emergency Medicine; PCP Physician Assistant
DX: R39.15 Urgency of urination (principal); J45.909 Unspecified asthma, uncomplicated; E66.9 Obesity, unspecified; Z90.49 Acquired absence of other specified parts of digestive tract; Z79.51 Long term (current) use of inhaled steroids
CPT/HCPCS: 99283; 99284

== ENCOUNTER 2022-04-04 15:25 | Emergency (ER) | payer OTHER, SELFPAY ==
--- NOTE | 2022-04-04 15:15 | RT.EKG_ITS ---
APPROVED REPORT Exam: Resting ECG Reason for Exam: chest discomfort Patient Location: E HR:82 bpm ECG Measurements Heart Rate 82 AXIS OH 146 P 39 QRSd 94 QRS -5 QT 383 T 15 QTc 446 Conclusion Sinus rhythm...normal P axis, V-rate 60- 99
[2022-04-04 15:29] VITALS: BP 169/92; PULSE 84; RESP 16; TEMP 36.8; O2SAT 97
--- NOTE | 2022-04-04 15:30 | DI.RAD_ITS ---
Exam(s) XR CHEST 2V PA LATERAL EXAM: XR CHEST 2V PA LATERAL CLINICAL HISTORY: chest pain. TECHNIQUE: 2D digital imaging was performed. COMPARISON: CR XR CHEST 2V PA LATERAL from 07/28/2021 FINDINGS: 2 views: Heart size is normal. The mediastinum is not widened. Lungs are clear. No infiltrates nor pleural effusions. IMPRESSION: No acute pulmonary findings. DATA REPOSITORY: RADIATION DOSE DELIVERED:
--- NOTE | 2022-04-04 15:37 | W.ED.GENAD ---
Discharge Plan Disposition Patient Disposition: Home Condition: Improving Discharge Details Clinical Impression: Chest pain Primary Care Provider: Maria Elena Metzger ED Provider: Shailesh Joel Home Meds and New Rx's Prescriptions: Continued fluticasone propionate 50 mcg/actuation spray,suspension 2 spray intranasal DAILY Rx Instructions: administer into each nostril Advair HFA 230-21 mcg/actuation HFA aerosol inhaler 2 puff inhalation BID Qty: 12 8RF montelukast [Singulair] 10 mg tablet 10 mg PO DAILY Qty: 30 12RF albuterol sulfate [ProAir HFA] 8.5 GM HFA aerosol inhaler 2 puff Inhalation Q4H PRN Qty: 1 ipratropium-albuterol 0.5 mg-3 mg(2.5 mg base)/3 mL solution for nebulization 3 ml inhalation .Q4-6H PRN Advair HFA 230-21 mcg/actuation HFA aerosol inhaler 2 puff inhalation BID famotidine 10 mg tablet 10 mg PO DAILY multivitamin Tablet 1 tab PO DAILY levothyroxine 50 mcg tablet 50 mcg PO DAILY Label Comments: TAKE ONE TABLET BY MOUTH EVERY DAY loratadine [Claritin] 10 mg Tablet 10 mg PO DAILY sertraline 50 mg tablet 50 mg PO DAILY Label Comments: TAKE ONE TABLET BY MOUTH EVERY DAY Discharge Instructions Instructions: Chest Pain (ED) Additional Instructions: Work-up in the ER does not reveal any obvious emergent process and you have responded well to the IV medications. Please watch for new or worsening symptoms and return to the ER for any concerns. Lastly, I would like you to contact your primary care provider tomorrow to discuss your ER visit and need for outpatient reevaluation. Medical Decision Making This is a 36-year-old female who reports a past medical history of asthma, anxiety, thyroid disease, obesity, presents to the ER for evaluation of what she describes as left-sided chest pain that began last night, resolved on its own, was not present this morning but has gradually come back throughout the day associated with some left shoulder pain as well. Patient does report some increased anxiety as well. She denies recent illness or trauma. Clinically she appears well, nontoxic. No cardiac history. Has not taken any medications prior to arrival. Given her subjective complaints, will obtain a cardiac work-up including a delta troponin and D-dimer, chest x-ray, will provide full dose aspirin. Initial work-up in the ER does not reveal any obvious emergent process. D-dimer is negative at 234, will not pursue CTA of the chest. Flu, COVID, RSV negative. TSH 2.46. No evidence of leukocytosis. Initial troponin less than 50. Chest x-ray unremarkable. Discussed work-up with patient. She is relieved. Plan to provide 30 IV Toradol and 1 mg IV Ativan. She is agreeable to awaiting a delta troponin. On reassessment she is asymptomatic. Remains hemodynamically stable. Delta troponin remains less than 50. Patient is currently asymptomatic. Discussed her delta troponin. Patient is low risk and is appropriate for discharge. She is comfortable discharge. Standard discharge and return precautions were provided. Patient understands, is agreeable to this plan, and has no additional questions or concerns upon discharge. This documentation was generated using [employer] system, please disregard any oddities of phrase or misspellings. Medical Records Medical records reviewed: Yes I reviewed the patient's medical records. Imaging Data Radiologic Study: Attestation: I personally reviewed and interpreted this imaging study as follows: Imaging: X-Ray Radiologist's impression: Exam(s) XR CHEST 2V PA LATERAL EXAM: XR CHEST 2V PA LATERAL CLINICAL HISTORY: chest pain. TECHNIQUE: 2D digital imaging was performed. COMPARISON: CR XR CHEST 2V PA LATERAL from 07/28/2021 FINDINGS: 2 views: Heart size is normal. The mediastinum is not widened. Lungs are clear. No infiltrates nor pleural effusions. IMPRESSION: No acute pulmonary findings. Lab Data Lab results reviewed: Yes I reviewed the patient's lab results. Labs: Laboratory Tests Range/Units 04/04/22 04/04/22 04/04/22 16:00 16:10 16:10 WBC (4.4-10.8) 10^3/uL 7.93 RBC (3.93-5.22) 10^6/uL 4.54 Hgb (11.2-15.7) g/dL 14.1 Hct (36.0-46.0) % 39.4 MCV (80-95) fL 87 MCH (27.0-33.0) pg 31.1 MCHC (32.0-36.0) % 35.8 RDW (11.7-14.6) % 12.3 Plt Count (130-400) 10^3/uL 210 MPV (8.0-11.0) fL 10.7 Immature Gran % 0.1 Neutrophils % 55.0 Lymphocytes % 35.2 Monocytes % 6.8 Eosinophils % 2.4 Basophils % 0.5 Nucleated RBC % (0.0-0.3) % 0.0 Absolute Neutrophils (1.2-6.7) 10^3/uL 4.36 Absolute Lymphocytes (1.2-3.4) 10^3/uL 2.79 Absolute Monocytes (0.1-0.8) 10^3/uL 0.54 Absolute Eosinophils (0.0-0.7) 10^3/uL 0.19 Absolute Basophils (0.0-0.2) 10^3/uL 0.04 PT (9.3-11.0) sec INR (0.9-1.1) APTT (21.0-27.5) sec D-Dimer (<500) ng/mlFEU Sodium (136-145) mmol/L 138 Potassium (3.5-5.1) mmol/L 3.6 Chloride (98-107) mmol/L 103 Carbon Dioxide (21.0-32.0) mmol/L 24.2 Anion Gap (3-11) mmol/L 10.8 BUN (7-18) mg/dL 14 Creatinine (0.55-1.02) mg/dL 0.8 Est GFR (CKD-EPI 2020) (mL/min/1.73m2) 97.26 Glucose (74-106) mg/dL 100 Calcium (8.5-10.1) mg/dL 8.7 Magnesium (1.8-2.4) mg/dL 1.8 Total Bilirubin (0.2-1.0) mg/dL 0.4 AST (15-37) U/L 22 ALT (14-59) U/L 26 Alkaline Phosphatase (46-116) U/L 92 Troponin I (<or=60) ng/L < 50 Total Protein (6.4-8.2) g/dL 7.3 Albumin (3.4-5.0) g/dL 3.8 Lipase (73-393) U/L TSH (0.36-3.74) uIU/mL 2.46 COVID-19 Source Nasopharynx SARS-CoV-2 (PCR) (Negative) Negative Influenza Type A (PCR) (Negative) Negative Influenza Type B (PCR) (Negative) Negative RSV (PCR) (Negative) Negative Range/Units 04/04/22 04/04/22 04/04/22 16:10 16:10 18:47 WBC (4.4-10.8) 10^3/uL RBC (3.93-5.22) 10^6/uL Hgb (11.2-15.7) g/dL Hct (36.0-46.0) % MCV (80-95) fL MCH (27.0-33.0) pg MCHC (32.0-36.0) % RDW (11.7-14.6) % Plt Count (130-400) 10^3/uL MPV (8.0-11.0) fL Immature Gran % Neutrophils % Lymphocytes % Monocytes % Eosinophils % Basophils % Nucleated RBC % (0.0-0.3) % Absolute Neutrophils (1.2-6.7) 10^3/uL Absolute Lymphocytes (1.2-3.4) 10^3/uL Absolute Monocytes (0.1-0.8) 10^3/uL Absolute Eosinophils (0.0-0.7) 10^3/uL Absolute Basophils (0.0-0.2) 10^3/uL PT (9.3-11.0) sec 9.4 INR (0.9-1.1) 0.9 APTT (21.0-27.5) sec 27.0 D-Dimer (<500) ng/mlFEU 234 Sodium (136-145) mmol/L Potassium (3.5-5.1) mmol/L Chloride (98-107) mmol/L Carbon Dioxide (21.0-32.0) mmol/L Anion Gap (3-11) mmol/L BUN (7-18) mg/dL Creatinine (0.55-1.02) mg/dL Est GFR (CKD-EPI 2020) (mL/min/1.73m2) Glucose (74-106) mg/dL Calcium (8.5-10.1) mg/dL Magnesium (1.8-2.4) mg/dL Total Bilirubin (0.2-1.0) mg/dL AST (15-37) U/L ALT (14-59) U/L Alkaline Phosphatase (46-116) U/L Troponin I (<or=60) ng/L < 50 Total Protein (6.4-8.2) g/dL Albumin (3.4-5.0) g/dL Lipase (73-393) U/L 88 TSH (0.36-3.74) uIU/mL COVID-19 Source SARS-CoV-2 (PCR) (Negative) Influenza Type A (PCR) (Negative) Influenza Type B (PCR) (Negative) RSV (PCR) (Negative) ECG Data Attestation: I personally reviewed and interpreted this ECG (s) as follows: Interpretation: Sinus rhythm, ventricular rate of 82, no STEMI. HPI General Mode of arrival: ambulatory. Date/Time Provider Initiated Documentation: 04/04/22 15:34. Limitations to Documentation: no limitations. Information obtained by: patient. HPI Narrative: This is a 36-year-old female with a past medical history of anxiety, obesity, asthma, thyroid disease, presenting to the ER today reporting a 2 out of 10 left dull chest aching as well as left shoulder aching. She reports that she went to bed last night asymptomatic awoke around midnight with left chest pain 4 out of 10, no radiation. She had 3 brief episodes, resolved on their own, and went back to bed. States that upon waking around 630 this morning she was asymptomatic but throughout the day the sensation has come back, now associated in her left shoulder, and is fairly constant. Reports nothing really makes it worse or better. She states that she has a history of left sided rotator cuff surgery and does have some discomfort there from time to time, difficult to say if this is similar. She denies recent illness or trauma, fever, cough, shortness of breath, radiation down her arm, numbness, tingling, weakness, abdominal pain, nausea, vomiting, pain or swelling in her legs, or hormonal control. She does admit to having anxiety and this feels a little different as with her anxiety she typically feels like her heart is racing. She does report that the holidays and an upcoming court situation is possibly making her slightly more anxious than baseline. Related Data Home Medications Medication Instructions Recorded Confirmed albuterol sulfate 90 mcg/actuation 2 puff inhalation Q4H PRN ##1 11/29/16 04/04/22 aerosol inhaler (ProAir HFA) levothyroxine 50 mcg tablet 50 mcg PO DAILY 08/22/19 04/04/22 loratadine 10 mg tablet (Claritin) 10 mg PO DAILY 12/10/19 04/04/22 ipratropium 0.5 mg-albuterol 3 mg 3 ml inhalation .Q4-6H PRN 04/27/21 04/04/22 (2.5 mg base)/3 mL nebulization soln sertraline 50 mg tablet 50 mg PO DAILY 06/23/21 04/04/22 fluticasone propionate 230 2 puff inhalation BID #12 grams 07/25/21 04/04/22 mcg-salmeterol 21 mcg/actuation HFA inhaler (Advair HFA) montelukast 10 mg tablet 10 mg PO DAILY #30 tabs 07/25/21 04/04/22 (Singulair) fluticasone propionate 50 2 spray intranasal DAILY 02/13/22 02/13/22 mcg/actuation nasal spray,suspension famotidine 10 mg tablet 10 mg PO DAILY 03/25/22 fluticasone propionate 230 2 puff inhalation BID 03/25/22 04/04/22 mcg-salmeterol 21 mcg/actuation HFA inhaler (Advair HFA) multivitamin 1 tab PO DAILY 03/25/22 04/04/22 Previous Rx's Medication Instructions Recorded fluticasone propionate 230 2 puff inhalation BID #12 grams 07/25/21 mcg-salmeterol 21 mcg/actuation HFA inhaler (Advair HFA) montelukast 10 mg tablet 10 mg PO DAILY #30 tabs 07/25/21 (Singulair) Allergies Allergy/AdvReac Type Severity Reaction Status Date / Time cat dander AdvReac Intermediate Verified 04/04/22 15:31 seasonal allergies Allergy Uncoded 04/04/22 15:31 General Stated Complaint: Chest Pain LEODAN: 2 Review of Systems Constitutional Constitutional: Denies fatigue, Denies fever(s), Denies headache(s) and Denies weakness ENT Ears, Nose, Mouth, and Throat: Denies headache(s) and Denies neck pain Cardiovascular Cardiovascular: Reports chest pain and Denies dyspnea Respiratory Respiratory: Denies cough and Denies dyspnea Gastrointestinal Gastrointestinal: Denies abdominal pain, Denies nausea and Denies vomiting Musculoskeletal Musculoskeletal: Denies back pain, Denies neck pain, Denies numbness and Denies tingling Integumentary/Breasts Skin/Breast: Denies rash Neurologic Neurologic: Denies headache(s), Denies numbness, Denies tingling and Denies weakness Psychiatric Psychiatric: Reports anxiety Endocrine Endocrine: Denies fatigue Hematologic/Lymphatic Hematologic/Lymphatic: Denies easy bleeding and Denies easy bruising PFS All Active Problems (Updated 04/04/22 @ 19:44 by MARILY Salinas) Chest pain (Acute) Cellulitis (Acute) Reactive depression (Acute) Obstructive sleep apnea (Chronic) Obesity (Chronic) Diverticulosis (Acute) Rectocele (Acute) Recurrent infections (Acute) Dyspnea and respiratory abnormalities (Acute) RUQ pain (Acute 07/03/14) Medical History Allergic rhinitis Anxiety Asthma History of use of contraceptive intrauterine device (IUD) Pt. reports IUD inplace during admission assessment Hypothyroidism Unspecified ovarian cyst, left side Surgical History section x2 Cholecystectomy (07/04/14) at [facility] Hx of tonsillectomy 05/02/2021 Family History Brother Diabetes Mother Depression Father No problems noted. Sister Depression Son No problems noted. Son No problems noted. Maternal Grandfather , 69 No problems noted. Paternal Grandfather , 60's No problems noted. Maternal Grandmother , 60's Depression Paternal Grandmother , 80's No problems noted. Other Cancer Social History Smoking/Tobacco Use Status: Never Second Hand Exposure: Yes Smoking risk assessment performed?: Yes Alcohol Intake: current Alcohol Intake frequency: holidays/special occasions only Alcohol type: beer Drug use: Never Substance use type: does not use Details: Alcohol last used at new Year Caregiver/Support person: No Household members: significant other and children Housing: house Communication Needs: None Do you need help understanding health information?: Rarely Pets and animals: Yes Pets and animals: cat(s) Sexually active: Yes Do you think of yourself as: straight/heterosexual Current gender identity: female What is your relationship status?: living with partner How often do you talk on the phone with friends or family?: three or more times per week How often do you get together with friends or relatives?: three or more times per week How often do you attend holiness or confucianist services?: decline to answer Do you belong to any clubs or organized social groups?: no Panel score (0-1 are the most socially isolated patients): 2 What type of physical activity do you participate in: walking Duration: < 15 minutes/day Frequency: 1-2 times per week Special juancarlos needs: No Seatbelt use: always Helmet use: Yes Helmet use: always Drive intox or ride w/intox milk tanker driver: No Do you feel safe at home: Yes Do you feel safe in your relationship?: Yes History History 2 Para 2 Hx # Term Pregnancies Multiple births Hx # Pregnancies Ectopic pregnancies AB induced Hx Number of Living Children AB spontaneous Past Pregnancies Del. Date GA/Weeks # Preg Succ Route Wgt Sex Labor Lgth Anesthesia Location [facility] 08/11/06 39 No Yes 3798.836 g Male [facility] 01/20/09 40 No Yes 4422.526 g Male [facility] Delivery Date: 08/11/06 Last Updated by: Rhona Carrillo Emergency c section- [place] Delivery Date: 01/20/09 Last Updated by: Rhona Carrillo Jaylon Exam Const General: cooperative, healthy appearing, comfortable and no acute distress Orientation: alert, awake and oriented x3 HENMT Head: normal to inspection, normocephalic and atraumatic Face and sinus: normal facial exam Mouth: moist mucous membranes Throat: posterior oropharynx normal Eyes General: appearance normal, both eyes and all related structures Conjunctivae: conjunctivae normal Neck Neck: normal visual inspection, full ROM, no meningeal signs, trachea midline and supple Chest Chest: normal inspection of the chest and normal palpation of entire chest wall Resp Effort & Inspection: normal respiratory effort and able to speak in complete sentences Auscultation: clear to auscultation bilaterally Cardio Rate: regular rate Rhythm: regular rhythm GI Palpation: soft, not firm, no guarding, no pulsatile masses and nontender Back/Spine/Pelvis Back: no CVA tenderness and No back tenderness Skin General skin exam: no rashes or lesions noted Neuro General: patient alert, patient awake, moves all extremities and no focal motor deficits Cognition: normal cognition Speech: speech normal Gait: normal gait Motor: muscle tone normal throughout Sensory Exam: no sensory deficits noted Extrem General: normal to inspection, full ROM, capillary refill normal, no pedal edema and no calf tenderness Psych Appearance: grossly normal Mental Status: mental status grossly normal Course Vital Signs Vital signs: Vital Signs Temperature 36.8 C 04/04/22 15:29 Pulse 84 04/04/22 15:29 Respiratory Rate 16 04/04/22 15:29 Blood Pressure 169/92 H 04/04/22 15:29 Pulse Oximetry 97 04/04/22 15:29 Temperature 36.8 C 04/04/22 15:29 Temperature Source Skin 04/04/22 15:29 Pulse 84 04/04/22 15:29 Respiratory Rate 16 04/04/22 15:29 Blood Pressure 169/92 H 04/04/22 15:29 Blood Pressure Position Sitting 04/04/22 15:29 Pulse Oximetry 97 04/04/22 15:29 Oxygen Delivery Method Room Air 04/04/22 15:29 Oxygen Flow Rate 0 04/04/22 15:29 Pain Level 3 04/04/22 15:29
[2022-04-04 16:16] LABS: Abs Immature Grans 0.01 10^3/uL (0.0-0.06); Absolute Basophil Count 0.04 10^3/uL (0.0-0.2); Absolute Eosinophil Count 0.19 10^3/uL (0.0-0.7); Absolute Lymphocyte Count 2.79 10^3/uL (1.2-3.4); Absolute Monocyte Count 0.54 10^3/uL (0.1-0.8); Absolute Neutrophil Count 4.36 10^3/uL (1.2-6.7); Basophils % 0.5; Eosinophils % 2.4; HCT 39.4 % (36.0-46.0); HGB 14.1 g/dL (11.2-15.7); Immature Grans % 0.1; Lymphocytes % 35.2; MCH 31.1 pg (27.0-33.0); MCHC 35.8 % (32.0-36.0); MCV 87 fL (80-95); MPV 10.7 fL (8.0-11.0); Monocytes % 6.8; Platelet Count 210 10^3/uL (130-400); RBC 4.54 10^6/uL (3.93-5.22); RDW 12.3 % (11.7-14.6); RDW-SD 39.3 fL; WBC 7.93 10^3/uL (4.4-10.8)
[2022-04-04 16:20] VITALS: RESP 20
[2022-04-04] MEDS: Aspirin 81 MG CHEW 324 MG CH (16:25)
[2022-04-04 16:31] LABS: INR 0.9 (0.9-1.1); Prothrombin Time 9.4 sec (9.3-11.0)
[2022-04-04 16:44] LABS: COVID-19 PCR Negative (Negative); Influenza A PCR Negative (Negative); Influenza B PCR Negative (Negative); RSV PCR Negative (Negative)
[2022-04-04 16:45] LABS: Source Nasopharynx
[2022-04-04 16:47] LABS: ALT 26 U/L (14-59); AST 22 U/L (15-37); Albumin 3.8 g/dL (3.4-5.0); Alkaline Phosphatase 92 U/L (46-116); Anion Gap 10.8 mmol/L (3-11); BUN 14 mg/dL (7-18); Bilirubin, Total 0.4 mg/dL (0.2-1.0); CO2 24.2 mmol/L (21.0-32.0); CREATININE 0.8 mg/dL (0.55-1.02); Calcium 8.7 mg/dL (8.5-10.1); Chloride 103 mmol/L (98-107); Estimated GFR 97.26 (mL/min/1.73m2); Glucose 100 mg/dL (74-106); Magnesium 1.8 mg/dL (1.8-2.4); Potassium 3.6 mmol/L (3.5-5.1); Sodium 138 mmol/L (136-145); TSH (W/Ref FT4) 2.46 uIU/mL (0.36-3.74); Total Protein 7.3 g/dL (6.4-8.2); Troponin I < 50 ng/L (<or=60)
[2022-04-04 16:55] LABS: Lipase 88 U/L (73-393)
[2022-04-04 16:58] LABS: D-Dimer 234 ng/mlFEU (<500)
[2022-04-04] MEDS: LORazepam 2 MG/ML VIAL 1 MG IVP (17:20)
[2022-04-04] MEDS: Ketorolac 30 MG/ML VIAL IVP (17:20)
[2022-04-04 19:13] LABS: Troponin I < 50 ng/L (<or=60)
[2022-04-04 19:32] VITALS: BP 123/81; PULSE 72; TEMP 36.4; O2SAT 99
== END 2022-04-04 20:05 | disposition home or self-care (01) ==
PROVIDERS: Emergency Provider Physician Assistant; PCP Nurse Practitioner Family
DX: R07.9 Chest pain, unspecified (principal); J45.909 Unspecified asthma, uncomplicated; Z79.51 Long term (current) use of inhaled steroids; Z20.822 Contact with and (suspected) exposure to COVID-19
CPT/HCPCS: 80053; 83690; 87637; 93005; 96374; 96375; 99284; 71046; 83735; 84443; 84484; 85025; 85379; 85610; 85730; 93010; 99285; J1885; J2060; J3490

== ENCOUNTER 2022-04-26 03:16 | Outpatient (CLI) | payer OTHER, SELFPAY ==
[2022-04-26 08:44] LABS: Abs Immature Grans 0.03 10^3/uL (0.0-0.06); Absolute Basophil Count 0.05 10^3/uL (0.0-0.2); Absolute Eosinophil Count 0.17 10^3/uL (0.0-0.7); Absolute Lymphocyte Count 2.56 10^3/uL (1.2-3.4); Absolute Monocyte Count 0.63 10^3/uL (0.1-0.8); Absolute Neutrophil Count 4.61 10^3/uL (1.2-6.7); Basophils % 0.6; Eosinophils % 2.1; HCT 42.7 % (36.0-46.0); HGB 14.5 g/dL (11.2-15.7); Immature Grans % 0.4; Lymphocytes % 31.8; MCH 30.3 pg (27.0-33.0); MCV 89 fL (80-95); MPV 10.5 fL (8.0-11.0); Monocytes % 7.8; Neutrophils % 57.3; Platelet Count 205 10^3/uL (130-400); RBC 4.79 10^6/uL (3.93-5.22); RDW 12.4 % (11.7-14.6); RDW-SD 40.6 fL; WBC 8.05 10^3/uL (4.4-10.8)
[2022-04-26 09:02] LABS: Hemoglobin A1C 4.6 % (<5.7)
[2022-04-26 09:28] LABS: Iron 55 ug/dL (50-170); Total Iron Binding Capacity 341 ug/dL (250-450); Transferrin Sat 16 % (15-50)
[2022-04-26 09:50] LABS: Vitamin D 25 Total 15.3 ng/mL (30-100)
[2022-04-26 09:55] LABS: ALT 28 U/L (14-59); AST 19 U/L (15-37); Albumin 3.8 g/dL (3.4-5.0); Alkaline Phosphatase 86 U/L (46-116); Anion Gap 7.2 mmol/L (3-11); BUN 11 mg/dL (7-18); Bilirubin, Total 0.4 mg/dL (0.2-1.0); CO2 26.8 mmol/L (21.0-32.0); CREATININE 0.8 mg/dL (0.55-1.02); Calcium 8.8 mg/dL (8.5-10.1); Calculated LDL 72 mg/dL (<100); Chloride 105 mmol/L (98-107); Cholesterol 129 mg/dL (<200); Estimated GFR 97.26 (mL/min/1.73m2); Ferritin 48 ng/mL (8-252); Glucose 87 mg/dL (74-106); HDL Cholesterol 40 mg/dL (40-60); Potassium 3.8 mmol/L (3.5-5.1); Sodium 139 mmol/L (136-145); TSH 4.17 uIU/mL (0.36-3.74); Total Protein 7.2 g/dL (6.4-8.2); Triglyceride 85 mg/dL (<150); Vitamin B12 386 pg/mL (193-986)
[2022-04-27 09:07] LABS: Insulin 16.7 uIU/mL (<29.0)
== END 2022-04-26 03:17 | disposition home or self-care (01) ==
PROVIDERS: Referring Provider Surgery; Visit Provider Surgery
DX: E66.01 Morbid (severe) obesity due to excess calories (principal); E03.9 Hypothyroidism, unspecified; E55.9 Vitamin D deficiency, unspecified
CPT/HCPCS: 36415; 80053; 80061; 82306; 82607; 82728; 83036; 83525; 83540; 83550; 84443; 85025

== ENCOUNTER 2022-08-10 02:01 | Outpatient (CLI) | payer OTHER, SELFPAY ==
[2022-08-10 13:15] LABS: TSH (W/Ref FT4) 2.35 uIU/mL (0.36-3.74)
== END 2022-08-10 02:02 | disposition home or self-care (01) ==
PROVIDERS: Nurse Practitioner Family; PCP Nurse Practitioner Family; Visit Provider Nurse Practitioner Family
DX: E03.9 Hypothyroidism, unspecified (principal)
CPT/HCPCS: 36415; 84443

== ENCOUNTER 2023-05-24 15:20 | Outpatient (CLI) | payer OTHER, SELFPAY ==
[2023-05-24 15:13] LABS: Abs Immature Grans 0.02 10^3/uL (0.0-0.06); Absolute Basophil Count 0.03 10^3/uL (0.0-0.2); Absolute Eosinophil Count 0.12 10^3/uL (0.0-0.7); Absolute Lymphocyte Count 2.63 10^3/uL (1.2-3.4); Absolute Monocyte Count 0.61 10^3/uL (0.1-0.8); Absolute Neutrophil Count 5.01 10^3/uL (1.2-6.7); Basophils % 0.4; Eosinophils % 1.4; HCT 41.3 % (36.0-46.0); HGB 14.6 g/dL (11.2-15.7); Immature Grans % 0.2; Lymphocytes % 31.2; MCH 31.1 pg (27.0-33.0); MCHC 35.4 % (32.0-36.0); MCV 88 fL (80-95); MPV 10.2 fL (8.0-11.0); Monocytes % 7.2; Neutrophils % 59.6; Platelet Count 215 10^3/uL (130-400); RDW 12.7 % (11.7-14.6); RDW-SD 40.6 fL; WBC 8.42 10^3/uL (4.4-10.8)
[2023-05-24 15:56] LABS: ALT 30 U/L (14-59); AST 17 U/L (15-37); Albumin 3.6 g/dL (3.4-5.0); Alkaline Phosphatase 87 U/L (46-116); Amylase 51 U/L (25-115); Anion Gap 10.6 mmol/L (3-11); BUN 8 mg/dL (7-18); Bilirubin, Total 0.3 mg/dL (0.2-1.0); CO2 24.4 mmol/L (21.0-32.0); CREATININE 0.9 mg/dL (0.55-1.02); Calcium 8.5 mg/dL (8.5-10.1); Chloride 105 mmol/L (98-107); Estimated GFR 83.92 (mL/min/1.73m2); Glucose 91 mg/dL (74-106); Lipase 45 U/L (16-77); Potassium 3.9 mmol/L (3.5-5.1); Sodium 140 mmol/L (136-145); Total Protein 7.3 g/dL (6.4-8.2)
== END 2023-05-24 15:21 | disposition home or self-care (01) ==
LOC: LBO 15:20
PROVIDERS: PCP Nurse Practitioner Family; Visit Provider Nurse Practitioner Family
DX: R10.11 Right upper quadrant pain (principal); R10.31 Right lower quadrant pain
CPT/HCPCS: 36415; 80053; 83690; 82150; 85025

== ENCOUNTER → 2023-05-25 18:47 | Outpatient (CLI) | payer OTHER, SELFPAY ==
--- NOTE | 2023-05-25 19:00 | DI.RAD_ITS ---
Exam(s) XR ABDOMEN FLAT UPRIGHT EXAM: 2D digital imaging was performed. CLINICAL HISTORY: RUQ pain. COMPARISON: No exams were available for comparison TECHNIQUE: Supine and uprightSupine and Lateral views of the abdomen were performed. FINDINGS: BOWEL GAS PATTERN: Nondistended.No free air. Moderate quantity of stool. Soft tissues: Multiple phleboliths in the pelvis. IUD. Surgical clips right upper quadrant. CALCIFICATIONS: No urinary tract calcifications. OSSEOUS STRUCTURES: Normal for age. Visualized portions of chest: Unremarkable. IMPRESSION: 1. Nonobstructive bowel gas pattern. 2. No radiopaque calculi. 3. No free air. DATA REPOSITORY: RADIATION DOSE DELIVERED:
--- NOTE | 2023-05-25 19:34 | DI.VRAD_ITS ---
PROCEDURE INFORMATION: Exam: XR Abdomen Exam date and time: 05/25/2023 7:07 PM Age: 37 years old Clinical indication: Abdominal pain; Epigastric; Additional info: Ruq pain TECHNIQUE: Imaging protocol: Radiologic exam of the abdomen. Views: 2 Views. Upright and supine views. COMPARISON: CT CHEST/ABD/PEL W 12/10/2019 1:08 PM FINDINGS: Lungs: Lung bases are clear. Gastrointestinal tract: Bowel loops are unremarkable. No distension or obstructive features. No edema. There is formed feces within the colon. Intraperitoneal space: Right upper quadrant post cholecystectomy surgical clips. No free air. No gross free fluid. Organs: IUD appears appropriately positioned in the midline pelvis. Vasculature: Multiple intrapelvic calcifications consistent with venous phleboliths. Bones/joints: Degenerative thoracolumbar spine changes. IMPRESSION: 1. No acute findings. 2. Nonspecific bowel gas pattern. 3. Lung bases are clear. 4. No free fluid or free air. Dictated and Authenticated by: Juan Hanson MD. Ordering:BIANCA Rodriguez MD
== END ==
PROVIDERS: PCP Nurse Practitioner Family; Visit Provider Physician Assistant
DX: R10.11 Right upper quadrant pain (principal)
CPT/HCPCS: 74019

== ENCOUNTER 2023-07-23 09:45 | Outpatient (REF) | payer OTHER, SELFPAY ==
--- NOTE | 2023-07-23 09:00 | PAPFT_PTH ---
PATIENT: Isabela Pool LOC: [facility] U#:[id number] AGE/SX: 37/F ROOM: RE07/23/[address]: Maria Dunn NP : 1985 BED: DIS: 07/23/2023 SPEC #: [id number] RECD: 07/24/23 12:58 STATUS: FADUMO GALE #: [id number] SILVIANO: 07/23/23 09:[address]: Maria Dunn DEPT: [facility] Cytology RECD BY: Cherie Holden Tissues: 1 - CX/ENDOCX FOR PAP SMEARS Procedures: PAP THIN PREP/[facility] Screening HPV DNA PROBE Comments: [id number] (HPV 16 & 18/45)
== END 2023-07-23 09:46 | disposition home or self-care (01) ==
LOC: LBN 09:45
PROVIDERS: PCP Nurse Practitioner Family; Visit Provider Nurse Practitioner Family
DX: R87.810 Cervical high risk human papillomavirus (HPV) DNA test positive (principal); Z00.00 Encounter for general adult medical examination without abnormal findings
CPT/HCPCS: 88142; 87624

== ENCOUNTER 2023-08-20 09:00 | Outpatient (CLI) | payer OTHER, SELFPAY ==
[2023-08-20 08:55] LABS: Abs Immature Grans 0.01 10^3/uL (0.0-0.06); Absolute Basophil Count 0.04 10^3/uL (0.0-0.2); Absolute Eosinophil Count 0.14 10^3/uL (0.0-0.7); Absolute Lymphocyte Count 2.23 10^3/uL (1.2-3.4); Absolute Monocyte Count 0.48 10^3/uL (0.1-0.8); Basophils % 0.6 %; HCT 42.5 % (36.0-46.0); HGB 14.6 g/dL (11.2-15.7); Immature Grans % 0.1 %; Lymphocytes % 31.9 %; MCH 30.7 pg (27.0-33.0); MCHC 34.4 % (32.0-36.0); MCV 90 fL (80-95); MPV 10.3 fL (8.0-11.0); Monocytes % 6.9 %; Neutrophils % 58.5 %; Platelet Count 186 10^3/uL (130-400); RBC 4.75 10^6/uL (3.93-5.22); RDW 12.3 % (11.7-14.6); RDW-SD 40.1 fL
[2023-08-20 09:28] LABS: Hemoglobin A1C 4.8 % (<5.7)
[2023-08-20 09:43] LABS: Calculated LDL 95 mg/dL (<100); Cholesterol 159 mg/dL (<200); HDL Cholesterol 44 mg/dL (40-60); TSH (W/Ref FT4) 4.43 uIU/mL (0.36-3.74); Triglyceride 103 mg/dL (<150)
[2023-08-20 09:59] LABS: ALT 26 U/L (14-59); AST 18 U/L (15-37); Albumin 3.6 g/dL (3.4-5.0); Alkaline Phosphatase 84 U/L (46-116); Anion Gap 10.2 mmol/L (3-11); BUN 14 mg/dL (7-18); Bilirubin, Total 0.5 mg/dL (0.2-1.0); CO2 24.8 mmol/L (21.0-32.0); CREATININE 0.9 mg/dL (0.55-1.02); Calcium 8.7 mg/dL (8.5-10.1); Chloride 106 mmol/L (98-107); Ferritin 69 ng/mL (8-252); Glucose 96 mg/dL (74-106); Sodium 141 mmol/L (136-145); Total Protein 7.1 g/dL (6.4-8.2); Vitamin B12 356 pg/mL (193-986)
[2023-08-20 10:00] LABS: FREE T4 0.79 ng/dL (0.76-1.46)
[2023-08-20 10:01] LABS: Vitamin D 25 Total 17.2 ng/mL (30-100)
[2023-08-22 11:30] LABS: Insulin, Free 21 mcIU/mL (3 - 25); Insulin, Total 21 mcIU/mL (3 - 25)
== END 2023-08-20 09:01 | disposition home or self-care (01) ==
LOC: LBO 09:01
PROVIDERS: PCP Nurse Practitioner Family; Visit Provider Surgery
DX: Z00.00 Encounter for general adult medical examination without abnormal findings (principal); E03.9 Hypothyroidism, unspecified; F32.89 Other specified depressive episodes; F41.8 Other specified anxiety disorders; E88.819 Insulin resistance, unspecified; E55.9 Vitamin D deficiency, unspecified; N92.5 Other specified irregular menstruation; G47.33 Obstructive sleep apnea (adult) (pediatric); E66.01 Morbid (severe) obesity due to excess calories; Z68.42 Body mass index [BMI] 45.0-49.9, adult; Z79.899 Other long term (current) drug therapy
CPT/HCPCS: 80053; 80061; 82306; 83525; 83527; 82607; 82728; 83036; 84439; 84443; 85025

== ENCOUNTER 2024-05-23 14:05 | Outpatient (CLI) | payer OTHER, SELFPAY ==
--- NOTE | 2024-05-23 13:38 | DI.CT_ITS ---
Exam(s) CT ABDOMEN PELVIS W EXAM: CT ABDOMEN PELVIS W CLINICAL HISTORY: colitis with rectal bleeding, K52.9, K62.5. TECHNIQUE: Imaging Protocol: Axial computed tomography images with coronal and sagittal reformatted images were created and reviewed CONTRAST MATERIAL: Intravenous: Omnipaque 350 Contrast volume:100 ml Oral: yes COMPARISON: CT CT RENAL COLIC WO from 01/10/2022 FINDINGS: ABDOMEN and PELVIS: Lung Bases: No acute findings. Liver: Normal density. No suspicious mass. Gallbladder and biliary tract: Cholecystectomy.. No biliary dilation. Pancreas: Normal density. No abnormal calcifications or inflammatory process. No evidence of mass. Spleen: Normal. Kidneys: Normal size, contour and axis. No radiodense stones. No obstructive uropathy. No suspicious masses seen. Adrenal glands: No masses seen. Vasculature: Abdominal aorta non-dilated. Soft tissues: Unremarkable. Bladder: No gross wall thickening. No calculi.No focal mass. Bowel: No obstruction. Diverticulosis of the descending and sigmoid colon. Inflammation at the mid sigmoid consistent with diverticulitis. Significant wall thickening and inflammatory change in the surrounding fat but no evidence of perforation or abscess. Appendix normal. Peritoneal cavity: No ascites. No focal collection.No free air. Bones: Unremarkable for age. Reproductive organs: Unremarkable. IUD in place. Lymph nodes: No pathologically enlarged lymph nodes. IMPRESSION:: Sigmoid diverticulitis. RADIATION DOSE DELIVERED: 1,401.05mGy.cm Total DLP DATA REPOSITORY: All CT scans at this facility are submitted to the National Radiology Data Registry (NRDR) Dose Index Registry (DIR) with the [employer] ([employer]). RADIATION OPTIMIZATION: All CT scans at this facility use at least one of these dose optimization te chniques: automated exposure control; mA and/or kV adjustment per patient size (includes targeted exa ms where dose is matched to clinical indication); or iterative reconstruction.
[2024-05-23] MEDS: Breeza Beverage 473 ML BTL PO ×2 (13:43→13:44)
[2024-05-23] MEDS: Omnipaque 350 MG/ML 50 ML BTL PO (13:45)
[2024-05-23 15:03] LABS: Abs Immature Grans 0.04 10^3/uL (0.0-0.06); Absolute Eosinophil Count 0.17 10^3/uL (0.0-0.7); Absolute Monocyte Count 0.73 10^3/uL (0.1-0.8); Absolute Neutrophil Count 7.93 10^3/uL (1.2-6.7); Basophils % 0.3 %; Eosinophils % 1.5 %; HCT 40.7 % (36.0-46.0); HGB 13.9 g/dL (11.2-15.7); Immature Grans % 0.3 %; Lymphocytes % 23.3 %; MCH 31.3 pg (27.0-33.0); MCHC 34.2 % (32.0-36.0); MCV 92 fL (80-95); MPV 10.3 fL (8.0-11.0); Monocytes % 6.3 %; Neutrophils % 68.3 %; Platelet Count 206 10^3/uL (130-400); RBC 4.44 10^6/uL (3.93-5.22); RDW 11.9 % (11.7-14.6); RDW-SD 40.2 fL; WBC 11.61 10^3/uL (4.4-10.8)
[2024-05-23 15:12] LABS: Absolute Basophil Count 0.03 10^3/uL (0.0-0.2); Absolute Lymphocyte Count 2.71 10^3/uL (1.2-3.4)
[2024-05-23 15:23] LABS: ESR 13 mm/hr (0-20)
[2024-05-23 15:37] LABS: ALT 31 U/L (14-59); AST 17 U/L (15-37); Albumin 3.8 g/dL (3.4-5.0); Alkaline Phosphatase 103 U/L (46-116); Anion Gap 7.7 mmol/L (3-11); BUN 14 mg/dL (7-18); Bilirubin, Total 0.55 mg/dL (0.2-1.0); C-Reactive Protein 2.76 mg/dL (<or=0.5); CO2 29.3 mmol/L (21.0-32.0); Calcium 9.1 mg/dL (8.5-10.1); Chloride 103 mmol/L (98-107); Estimated GFR 73.49 (mL/min/1.73m2); Glucose 70 mg/dL (74-106); Potassium 3.7 mmol/L (3.5-5.1); Sodium 140 mmol/L (136-145); Total Protein 7.5 g/dL (6.4-8.2)
[2024-05-23] MEDS: Normal Saline - Diluent 50 ML VIAL IJ (15:41)
[2024-05-23] MEDS: Omnipaque 350 MG/ML 100 ML BTL IJ (15:41)
== END 2024-05-23 14:25 ==
PROVIDERS: PCP Nurse Practitioner Family; Visit Provider Family Medicine
DX: K57.30 Diverticulosis of large intestine without perforation or abscess without bleeding; Z00.00 Encounter for general adult medical examination without abnormal findings
CPT/HCPCS: 80053; 85652; 74177; 85025; 86140; J3490; Q9967

== ENCOUNTER 2024-08-06 16:49 | Outpatient (REF) | payer OTHER, SELFPAY | END 2024-08-06 16:50 | disposition home or self-care (01) | LOC: LBN 16:49 | PROVIDERS: PCP Nurse Practitioner Family; Visit Provider Registered Nurse | DX: J02.9 Acute pharyngitis, unspecified (principal) | CPT/HCPCS: 87070 ==

== ENCOUNTER 2024-09-29 10:25 | Outpatient (REF) | payer OTHER, SELFPAY ==
[2024-09-30 15:08] LABS: Chlamydia Result Negative (Negative); GC Result Negative (Negative)
== END 2024-09-29 10:26 | disposition home or self-care (01) ==
LOC: LBN 10:25
PROVIDERS: PCP Nurse Practitioner Family; Visit Provider Obstetrics & Gynecology
DX: Z12.4 Encounter for screening for malignant neoplasm of cervix (principal)
CPT/HCPCS: 87491; 87591; 88142; 87624

== ENCOUNTER 2024-10-22 14:05 | Outpatient (REF) | payer OTHER, SELFPAY | END 2024-10-22 14:06 | disposition home or self-care (01) | LOC: LBN 14:05 | PROVIDERS: PCP Nurse Practitioner Family; Visit Provider Nurse Practitioner Women's Health | DX: A59.9 Trichomoniasis, unspecified (principal) | CPT/HCPCS: 87480; 87510; 87660 ==

== ENCOUNTER 2024-10-27 02:23 | Outpatient (CLI) | payer OTHER, SELFPAY ==
--- NOTE | 2024-10-27 06:45 | DI.MAMMO_ITS ---
Exam(s) MAMMO SCREENING EXAM: MAMMO SCREENING CLINICAL HISTORY: screening,Z12.39 TECHNIQUE: Bilateral full field digital CC and MLO mammographic images were obtained with 3D tomosynthesis and utilizing computer aided detection (CAD). COMPARISON: This is a baseline examination. FINDINGS: Masses/Architectural Distortion: No suspicious masses or areas of architectural distortion are present. Microcalcifications: No suspicious pleomorphic-type are seen. Skin Thickening/Nipple Retraction: None. IMPRESSION: 1. There is no evidence of malignancy at this time. 2. Unless there is more urgent need, screening mammography is recommended, as per [employer] guidelines. BI-RADS Category 1 - Negative Breast Density - Category B - There are scattered areas of fibroglandular density. Breast density Category C or D implies that the patient has dense breast tissue. Dense breast tissue can make it harder to find cancer on a mammogram. Dense breast tissue is also associated with an increased risk of breast cancer. This information about the result of the mammogram report was provided to the patient to raise their awareness. Use this report when you speak with the patient about their risks for breast cancer, which includes their family history. At that time, you may recommend additional screening tests (Ultrasound or MRI) as these tests may add significant information. A negative radiographic report should not delay biopsy if a dominant or clinically suspicious mass is present. Up to ten percent of cancers are not identified on mammography. A negative report may reinforce clinical impression. Adenosis and dense breasts may obscure an underlying neoplasm. False positive reports average 6 to 10%. Patient will receive a letter notifying them of these results.
== END 2024-10-27 02:43 ==
LOC: DI 02:23
PROVIDERS: PCP Nurse Practitioner Family; Visit Provider Nurse Practitioner Family
DX: Z12.31 Encounter for screening mammogram for malignant neoplasm of breast (principal); R92.323 Mammographic fibroglandular density, bilateral breasts
CPT/HCPCS: 77063; 77067

== ENCOUNTER 2024-10-27 12:29 | Outpatient (CLI) | payer OTHER, SELFPAY ==
[2024-10-27 08:50] LABS: Anion Gap 8.6 mmol/L (3-11); BUN 12 mg/dL (7-18); CO2 26.4 mmol/L (21.0-32.0); Calcium 8.9 mg/dL (8.5-10.1); Calculated LDL 82 mg/dL (<100); Chloride 104 mmol/L (98-107); Cholesterol 137 mg/dL (<200); Estimated GFR 112.05 (mL/min/1.73m2); Glucose 94 mg/dL (74-106); HDL Cholesterol 39 mg/dL (>or=50); Potassium 3.8 mmol/L (3.5-5.1); Sodium 139 mmol/L (136-145); TSH (W/Ref FT4) 2.93 uIU/mL (0.36-3.74); Triglyceride 83 mg/dL (<150)
[2024-10-27 18:51] LABS: HIV-1/2 Ag & Ab Screen Negative (Negative)
[2024-10-28 11:33] LABS: Syphilis Serology (RPR) Negative (Negative)
[2024-10-29 10:58] LABS: HSV Type 2 Ab, IgG Positive (Negative)
== END 2024-10-27 12:30 | disposition home or self-care (01) ==
LOC: LBO 12:29
PROVIDERS: PCP Nurse Practitioner Family; Visit Provider Nurse Practitioner Family
DX: E03.9 Hypothyroidism, unspecified (principal); Z00.00 Encounter for general adult medical examination without abnormal findings; Z20.2 Contact with and (suspected) exposure to infections with a predominantly sexual mode of transmission
CPT/HCPCS: 36415; 80048; 80061; 87389; 84443; 86592; 86695; 86696

== ENCOUNTER 2024-11-13 11:54 | Outpatient (REF) | payer OTHER, SELFPAY | END 2024-11-13 11:55 | disposition home or self-care (01) | LOC: LBN 11:54 | PROVIDERS: PCP Nurse Practitioner Family; Visit Provider Obstetrics & Gynecology | DX: C44.92 Squamous cell carcinoma of skin, unspecified (principal) | CPT/HCPCS: 88305 ==